=== PATIENT | male | born 1940 | race Caucasian/White ===

== ENCOUNTER → 2016-06-11 | Outpatient (CLI) | payer BC ==
[~2016-06-11] MED LIST: ATOR-22 PO; CHOL1000 PO; CLOP1TAB15 PO; GLC500 PO; LISI-725 PO; METO50TA16 PO; NTRGSL/4 UT; PRED1SUS OPR
--- NOTE | 2016-06-11 09:17 | DIAGNOSTIC IMAGING REPORT ---
CHEST 2 VIEWS ROUTINE CLINICAL HISTORY: J18.1 Right middle lobe [id number] pneumonia COMPARISON STUDY: 04/30/2016 FINDINGS: Chronic changes present described. Lungs are now considered clear. No acute infiltrate. Mid lobe findings have resolved. IMPRESSION: Chest now shows no acute inflammatory process. Stable mild chronic emphysematous change. Electronically signed by: Cruzito Phillips M.D. 06/11/2016 9:15 AM Dictated Date/Time: 06/11/2016 9:14 AM
== END | disposition home or self-care (01) ==
LOC: C.RADBC 08:54
PROVIDERS: ATTEND Internal Medicine Geriatric Medicine
DX: J18.1 Lobar pneumonia, unspecified organism (principal)

== ENCOUNTER → 2016-07-16 | Day surgery (SDC) | payer BC ==
[2016-07-14 10:51] VITALS: Ht 170.2 cm; Wt 63.6 kg
[~2016-07-16] VITALS: Ht 170.2 cm; Wt 63.6 kg
[~2016-07-16] MED LIST changes: +500ML BSS 0.3ML EPI 1:1000PF IRRIG ONE; +ACETAMINOPHEN 325 MG TAB PO PRN; +AMVISC PLUS 0.8ML SYRINGE INT OCU ONE; +ATROPINE SULFATE 0.1 MG/ML 5ML SYR IV PRN; +AcetaZOLAMIDE 250 MG TAB ONE; +AcetaZOLAMIDE 250 MG TAB PO SCH; +BETAXOLOL HCL 0.25% OP SUSP PER DROP CHARGE OPR SCH; +BRIMONIDINE TART 0.2% OP SOLN PER DROP CHARGE ONE; +BSS FLUSH ONE; +ENDOCOAT 0.85ML SYRINGE INT OCU ONE; +EpHEDrine SULFATE INJ 50 MG/ML AMP IV PRN; +EpINEphrine INJ 1MG/ML AMP 1 MG/ML AMP ONE; +LACTATED RINGER'S 1000ML 500 ML IV SCH; +LIDOCAINE 4% OP SOLN DROP CHARGE ONE; +LIDOCAINE 4% OP SOLN DROP CHARGE OPR SCH; +LIDOCAINE HCL 1% MPF 2 ML VIAL ONE; +MIDAZOLAM HCL 1 MG/ML 2ML VIAL ONE; +MIX: 4ML BSS 1ML EPI 1:1000 PF INSTIL ONE; +MOXIFLOXACIN OPH SOLN PER DROP CHARGE ONE; +OCUCOAT 1 ML SOLN IO ONE; +ONDANSETRON INJ 2 MG/ML 2 ML VIAL IV PRN; +POVIDONE-IODINE OP SOLN 30 ML BTL ONE; +PROPARACAINE 0.5% OP SOLN PER DROP CHARGE OPR SCH; +TOBRAMYCIN/DEXAMETHASONE OPH OINT PER APPLN CHARGE ONE
--- NOTE | 2016-07-16 07:47 | History & Physical Bridge - SC ---
H&P Re-Evaluation Bridge Note: I have examined the patient, reviewed the History & Physical and in the interval since the performance of the History & Physical I have noted the following changes of clinical significance: No changes noted
[2016-07-16] MEDS: PHENYLEPHRINE HCL 2.5% OP SOLN PER DROP CHARGE OPR SCH ×2 (08:32→08:37)
[2016-07-16] MEDS: TROPICAMIDE 1% OP SOLN PER DROP CHARGE OPR SCH ×2 (08:33→08:38)
[2016-07-16] MEDS: CYCLOPENTOLATE HCL 1% OP SOLN PER DROP CHARGE OPR SCH ×2 (08:34→08:39)
[2016-07-16] MEDS: MOXIFLOXACIN OPH SOLN PER DROP CHARGE OPR SCH ×2 (08:35→08:45)
--- NOTE | 2016-07-16 09:26 | Discharge Instructions-SurgCtr ---
Discharge Instructions Date of Service Jul 16, 2016. Visit Reason for Visit: Cataract Right Eye Discharge Discharge Diagnosis / Problem: lens implant right eye Discharge Goals Goal(s): Improve function Medications Stopped Medications Name(s): Metformin stopped Thursday Activity Recommendations Activity Limitations: resume your previous activity Lifting Limitations: no more than 10 pounds Exercise/Sports Limitations: gradually increase as tolerated May Resume Sexual Activity: when tolerated Shower/Bathe: tomorrow Driving or Machine Use: resume 1 day after discharge Anesthesia . Post Anesthesia Instructions: If you have had General Anesthesia or IV Sedation: * Do not drive today. * Resume driving when surgeon permits. * Do not make important decisions or sign legal documents today. * Call surgeon for: 1. Temperature elevations greater than 101 degrees F. 2. Uncontrollable pain. 3. Excessive bleeding. 4. Persistent nausea and vomiting. 5. Medication intolerance (nausea, vomiting or rash). * For nausea and vomiting use only clear liquids such as: tea, soda, bouillon until nausea subsides, then gradually increase diet as tolerated. * If you have any concerns or questions, call your surgeon's office. If physician is unavailable and it is an emergency, call 911 or go to the nearest emergency room. . Instructions / Follow-Up Instructions / Follow-Up ACTIVITY RECOMMENDATIONS: * Light activities. * Mild irritation and blurred vision are common for the first few days. * You may walk outside, read, watch television. * Redness around the white part of the eye is common. MEDICATIONS: Resume previous medications unless instructed otherwise by your surgeon. * Take white Diamox (Acetazolamide) tablet at 1 pm today. Start all eye drops at 1 pm today: * Eye drops (today and tomorrow): Prednisone - one drop in operative eye every 3 hours while awake Ofloxacin - one drop in operative eye every 3 hours while awake SPECIAL CARE INSTRUCTIONS: * Tape plastic shield over eye to sleep at night. Call your doctor at with any concerns or problems. FOLLOW UP VISIT: Follow-up with Dr Bolden at [place] office as scheduled. Diet Recommendations Home Diet: no limitations Procedures Procedures Performed: cataract extraction with lens implant Pending Studies Studies pending at discharge: no Medical Emergencies . Who to Call and When: Medical Emergencies: If at any time you feel your situation is an emergency, please call 911 immediately. . Non-Emergent Contact Non-Emergency issues call your: Engineering Mechanic Call Non-Emergent contact if: your pain is not controlled [phone] . . "Provider Documentation" section prepared by Les Bolden.
--- NOTE | 2016-07-16 09:28 | [facility] Operative Report ---
Operative Report Date of Service Jul 16, 2016. Operative Report 1. PREOPERATIVE DIAGNOSIS: Senile nuclear cataract, right eye. 2. POSTOPERATIVE DIAGNOSIS: Senile nuclear cataract, right eye. 3. PROCEDURE: Phacoemulsification of right cataract with posterior chamber lens implant, type [employer]ch [employer] Lomb, model MX60, power +23.0 diopters. ANESTHESIA: Local standby. SURGEON: Dr. Bolden. COMPLICATIONS: None. OPERATING TIME: 10 minutes. 4. OPERATION AND FINDINGS: DESCRIPTION OF PROCEDURE: The right pupil was dilated. The anesthetic was administered using a topical technique. The right eye was prepped and draped. A speculum was placed. A clear corneal incision was formed. The chamber was filled with Amvisc Plus and Endocoat. Epinephrine solution was used. A paracentesis was placed. A capsulorrhexis was performed. The nucleus was hydrodissected. The lens was removed with phacoemulsification. Time was 2.32 seconds. The aspiration unit was used to remove the cortex. The capsule was filled with Amvisc Plus. The lens implant was folded and placed into the capsule. The incision was hydrated. The Amvisc was aspirated. The wound was secure. The chamber was deep. The pupil was round. Brimonidine, TobraDex ointment and Vigamox solution were placed. The speculum was removed. The patient was returned to the Recovery Room in stable condition. I attest to the content of the Intraoperative Record and any orders documented therein. Any exceptions are noted below. The scribe's documentation has been prepared in my presence, under my direction and personally reviewed by me in its entirety. I confirm that the note above accurately reflects all work, treatment, procedures, and medical decision making performed by me. I personally scribed for Les Bolden M.D. ([email or web address]) on 07/16/16 at 09:28. Electronically submitted by Nicole Diaz (ISAEL).
[2016-07-16 09:31] VITALS: BP 130/77; PULSE 69; TEMP 36.6; O2SAT 99
--- NOTE | 2016-07-16 09:58 | Anesthesia Progress Nt - [facility] ---
Anesthesia Post Op Note Date & Time Jul 16, 2016 at 09:58 Vital Signs Pain Intensity: 0 Vital Signs Past 12 Hours Date Time Temp Pulse Resp B/P Pulse Ox O2 Delivery O2 Flow Rate FiO2 07/16/16 09:31 36.6 69 16 130/77 99 Room Air 07/16/16 08:26 36.5 55 16 144/77 98 Room Air Notes Mental Status: alert / awake / arousable, participated in evaluation Pt Amnestic to Procedure: Yes Nausea / Vomiting: adequately controlled Pain: adequately controlled Airway Patency, RR, SpO2: stable & adequate BP & HR: stable & adequate Hydration State: stable & adequate Anesthetic Complications: no major complications apparent
== END | disposition home or self-care (01) ==
LOC: X.SURG 07:21
PROVIDERS: ATTEND Specialist
DX: H25.11 Age-related nuclear cataract, right eye (principal); I10 Essential (primary) hypertension; E11.9 Type 2 diabetes mellitus without complications

== ENCOUNTER → 2016-07-30 | Day surgery (SDC) | payer BC ==
[2016-07-25 13:35] VITALS: Ht 170.2 cm; Wt 63.6 kg
[~2016-07-30] VITALS: Ht 170.2 cm; Wt 63.6 kg
[~2016-07-30] MED LIST changes: -AcetaZOLAMIDE 250 MG TAB ONE; +BETAXOLOL HCL 0.25% OP SUSP PER DROP CHARGE OPL SCH; -BETAXOLOL HCL 0.25% OP SUSP PER DROP CHARGE OPR SCH; +FENTANYL CITRATE INJ 50 MCG/1 ML 2 ML VIAL ONE; +LIDOCAINE 4% OP SOLN DROP CHARGE OPL SCH; -LIDOCAINE 4% OP SOLN DROP CHARGE OPR SCH; -ONDANSETRON INJ 2 MG/ML 2 ML VIAL IV PRN; +PROPARACAINE 0.5% OP SOLN PER DROP CHARGE OPL SCH; -PROPARACAINE 0.5% OP SOLN PER DROP CHARGE OPR SCH
[2016-07-30] MEDS: PHENYLEPHRINE HCL 2.5% OP SOLN PER DROP CHARGE OPL SCH ×2 (06:33→06:38)
[2016-07-30] MEDS: TROPICAMIDE 1% OP SOLN PER DROP CHARGE OPL SCH ×2 (06:34→06:39)
[2016-07-30] MEDS: CYCLOPENTOLATE HCL 1% OP SOLN PER DROP CHARGE OPL SCH ×2 (06:35→06:40)
[2016-07-30] MEDS: MOXIFLOXACIN OPH SOLN PER DROP CHARGE OPL SCH ×2 (06:36→06:41)
--- NOTE | 2016-07-30 07:35 | Discharge Instructions-SurgCtr ---
Discharge Instructions Date of Service Jul 30, 2016. Visit Reason for Visit: Cataract Left Eye Discharge Discharge Diagnosis / Problem: lens implant left eye Discharge Goals Goal(s): Improve function Medications Stopped Medications Name(s): Metformin-last dose 07/28/16 Activity Recommendations Activity Limitations: resume your previous activity Lifting Limitations: no more than 10 pounds Exercise/Sports Limitations: gradually increase as tolerated May Resume Sexual Activity: when tolerated Shower/Bathe: tomorrow Driving or Machine Use: resume 1 day after discharge Anesthesia . Post Anesthesia Instructions: If you have had General Anesthesia or IV Sedation: * Do not drive today. * Resume driving when surgeon permits. * Do not make important decisions or sign legal documents today. * Call surgeon for: 1. Temperature elevations greater than 101 degrees F. 2. Uncontrollable pain. 3. Excessive bleeding. 4. Persistent nausea and vomiting. 5. Medication intolerance (nausea, vomiting or rash). * For nausea and vomiting use only clear liquids such as: tea, soda, bouillon until nausea subsides, then gradually increase diet as tolerated. * If you have any concerns or questions, call your surgeon's office. If physician is unavailable and it is an emergency, call 911 or go to the nearest emergency room. . Instructions / Follow-Up Instructions / Follow-Up ACTIVITY RECOMMENDATIONS: * Light activities. * Mild irritation and blurred vision are common for the first few days. * You may walk outside, read, watch television. * Redness around the white part of the eye is common. MEDICATIONS: Resume previous medications unless instructed otherwise by your surgeon. * Take white Diamox (Acetazolamide) tablet at 1 pm today. Start all eye drops at 1 pm today: * Eye drops (today and tomorrow): Prednisone - one drop in operative eye every 3 hours while awake Ofloxacin - one drop in operative eye every 3 hours while awake SPECIAL CARE INSTRUCTIONS: * Tape plastic shield over eye to sleep at night. Call your doctor at with any concerns or problems. FOLLOW UP VISIT: Follow-up with Dr Bolden at [place] office as scheduled. Diet Recommendations Home Diet: no limitations Procedures Procedures Performed: cataract extraction with lens implant Pending Studies Studies pending at discharge: no Medical Emergencies . Who to Call and When: Medical Emergencies: If at any time you feel your situation is an emergency, please call 911 immediately. . Non-Emergent Contact Non-Emergency issues call your: Genetic Technologist Call Non-Emergent contact if: your pain is not controlled [phone] . . "Provider Documentation" section prepared by Les Bolden.
--- NOTE | 2016-07-30 07:37 | [facility] Operative Report ---
Operative Report Date of Service Jul 30, 2016. Operative Report 1. PREOPERATIVE DIAGNOSIS: Senile nuclear cataract, left eye. 2. POSTOPERATIVE DIAGNOSIS: Senile nuclear cataract, left eye. 3. PROCEDURE: Phacoemulsification of left cataract with posterior chamber lens implant, type Bausch [employer] Lomb, model MX60, power +24.0 diopters. ANESTHESIA: Local standby. SURGEON: Dr. Bolden. COMPLICATIONS: None. OPERATING TIME: 10 minutes. 4. OPERATION AND FINDINGS: DESCRIPTION OF PROCEDURE: The left pupil was dilated. The anesthetic was administered using a topical technique. The left eye was prepped and draped. A speculum was placed. A clear corneal incision was formed. The chamber was filled with Amvisc Plus and Endocoat. Epinephrine solution was used. A paracentesis was placed. A capsulorrhexis was performed. The nucleus was hydrodissected. The lens was removed with phacoemulsification. Time was 2.40 seconds. The aspiration unit was used to remove the cortex. The capsule was filled with Amvisc Plus. The lens implant was folded and placed into the capsule. The incision was hydrated. The Amvisc was aspirated. The wound was secure. The chamber was deep. The pupil was round. Brimonidine, TobraDex ointment and Vigamox solution were placed. The speculum was removed. The patient was returned to the Recovery Room in stable condition. I attest to the content of the Intraoperative Record and any orders documented therein. Any exceptions are noted below. The scribe's documentation has been prepared in my presence, under my direction and personally reviewed by me in its entirety. I confirm that the note above accurately reflects all work, treatment, procedures, and medical decision making performed by me. I personally scribed for Les Bolden M.D. ([email or web address]) on 07/30/16 at 07:37. Electronically submitted by Nicole Diaz ([facility]).
[2016-07-30 07:41] VITALS: TEMP 36.1
--- NOTE | 2016-07-30 08:11 | Anesthesia Progress Nt - [facility] ---
Anesthesia Post Op Note Date & Time Jul 30, 2016 at 08:11 Vital Signs Pain Intensity: 0 Vital Signs Past 12 Hours Date Time Temp Pulse Resp B/P Pulse Ox O2 Delivery O2 Flow Rate FiO2 07/30/16 07:41 36.1 55 12 112/51 98 Room Air 07/30/16 06:29 36.5 65 18 145/55 98 Room Air Notes Mental Status: alert / awake / arousable, participated in evaluation Pt Amnestic to Procedure: Yes Nausea / Vomiting: adequately controlled Pain: adequately controlled Airway Patency, RR, SpO2: stable & adequate BP & HR: stable & adequate Hydration State: stable & adequate Anesthetic Complications: no major complications apparent
[2016-07-30 08:17] VITALS: BP 115/70; PULSE 53; O2SAT 95
== END | disposition home or self-care (01) ==
LOC: X.SURG 06:07
PROVIDERS: ATTEND Specialist
DX: H25.12 Age-related nuclear cataract, left eye (principal); I10 Essential (primary) hypertension

== ENCOUNTER → 2016-10-02 | Outpatient (CLI) | payer BC ==
[~2016-10-02] MED LIST changes: -500ML BSS 0.3ML EPI 1:1000PF IRRIG ONE; -ACETAMINOPHEN 325 MG TAB PO PRN; -AMVISC PLUS 0.8ML SYRINGE INT OCU ONE; -ATROPINE SULFATE 0.1 MG/ML 5ML SYR IV PRN; -AcetaZOLAMIDE 250 MG TAB PO SCH; -BETAXOLOL HCL 0.25% OP SUSP PER DROP CHARGE OPL SCH; -BRIMONIDINE TART 0.2% OP SOLN PER DROP CHARGE ONE; -BSS FLUSH ONE; -ENDOCOAT 0.85ML SYRINGE INT OCU ONE; -EpHEDrine SULFATE INJ 50 MG/ML AMP IV PRN; -EpINEphrine INJ 1MG/ML AMP 1 MG/ML AMP ONE; -FENTANYL CITRATE INJ 50 MCG/1 ML 2 ML VIAL ONE; -LACTATED RINGER'S 1000ML 500 ML IV SCH; -LIDOCAINE 4% OP SOLN DROP CHARGE ONE; -LIDOCAINE 4% OP SOLN DROP CHARGE OPL SCH; -LIDOCAINE HCL 1% MPF 2 ML VIAL ONE; -MIDAZOLAM HCL 1 MG/ML 2ML VIAL ONE; -MIX: 4ML BSS 1ML EPI 1:1000 PF INSTIL ONE; -MOXIFLOXACIN OPH SOLN PER DROP CHARGE ONE; -OCUCOAT 1 ML SOLN IO ONE; -POVIDONE-IODINE OP SOLN 30 ML BTL ONE; -PROPARACAINE 0.5% OP SOLN PER DROP CHARGE OPL SCH; -TOBRAMYCIN/DEXAMETHASONE OPH OINT PER APPLN CHARGE ONE
[2016-10-02 09:48] LABS: ESTIMATED AVERAGE GLUCOSE 140 mg/dl; HA1C FLAG Normal (Normal)
[2016-10-02 09:49] LABS: BLOOD UREA NITROGEN 15 mg/dl (7-18); GLUCOSE 112 mg/dl (70-99)
[2016-10-02 09:50] LABS: BUN/CREATININE RATIO 12.2 (10-20); CARBON DIOXIDE 30 mmol/L (21-32); CHLORIDE 103 mmol/L (98-107); CHOLESTEROL 102 mg/dl (0-200); POTASSIUM 4.3 mmol/L (3.5-5.1); SODIUM 140 mmol/L (136-145); TRIGLYCERIDES 82 mg/dl (0-150); VERY LOW DENSITY LIPOPROT CALC 16 mg/dl
[2016-10-02 09:54] LABS: CALCIUM 8.9 mg/dl (8.5-10.1)
[2016-10-02 09:56] LABS: CHOLESTEROL/HDL RATIO 2.9; HDL CHOLESTEROL 35 mg/dl; LDL CHOLESTEROL CALCULATED 51 mg/dl
[2016-10-02 09:58] LABS: URINE PROTIEN/CREAT RATIO 0.1 (0-0.2); URINE TOTAL PROTEIN 15.6 mg/dl (0-11.9)
== END | disposition home or self-care (01) ==
LOC: C.LAB 06:53
PROVIDERS: ATTEND Internal Medicine Geriatric Medicine
DX: I25.10 Atherosclerotic heart disease of native coronary artery without angina pectoris (principal); E11.9 Type 2 diabetes mellitus without complications; E78.5 Hyperlipidemia, unspecified; I10 Essential (primary) hypertension

== ENCOUNTER → 2017-12-14 | Outpatient (CLI) | payer BC | END | disposition home or self-care (01) | LOC: C.LAB 13:33 | PROVIDERS: ATTEND Nurse Practitioner Adult Health | DX: I25.10 Atherosclerotic heart disease of native coronary artery without angina pectoris (principal); E11.9 Type 2 diabetes mellitus without complications; I10 Essential (primary) hypertension; I25.2 Old myocardial infarction; T14.90XA Injury, unspecified, initial encounter; W57.XXXA Bitten or stung by nonvenomous insect and other nonvenomous arthropods, initial encounter ==

== ENCOUNTER 2020-03-20 12:03 | Inpatient (IN) ==
[2020-03-20] MEDS ORDERED: OPTIRAY 320 125ml IV ONE (12:36)
--- NOTE | 2020-03-20 12:36 | CT Scan Report ---
CT OF THE HEAD WITHOUT CONTRAST CLINICAL HISTORY: Stroke evaluation. COMPARISON STUDY: No previous studies for comparison. TECHNIQUE: Helical axial images of the head were obtained without IV contrast. Automated exposure con trol was utilized for the study. A dose lowering technique was utilized adhering to the principles o f ALARA. FINDINGS: No acute intracranial hemorrhage, midline shift or mass effect is present. The ventricular system is unremarkable. The basal cisterns are patent. No extra-axial collections are present. There are no findings to suggest acute dural sinus thrombosis or acute territorial infarct. No significant calvarial abnormalities are present. Visualized portions of the sinuses and mastoid air cells are aroldo ar. IMPRESSION: No acute intracranial findings. ACT 112: Negative or not required by law. Electronically signed by: Lucas Vu M.D. 03/20/2020 12:35 PM
[2020-03-20] MEDS ORDERED: MAGNESIUM SULFATE / D5W 1 GM/100 ML BAG IV STA (12:40)
[2020-03-20] MEDS ORDERED: SODIUM CHLORIDE 0.9% 1000ML 500 ML IV ONE (12:40)
[2020-03-20] MEDS ORDERED: MAGNESIUM SULFATE 1GM / D5W BAG IV ONE (12:41)
--- NOTE | 2020-03-20 12:50 | CT Scan Report ---
CT ANGIOGRAM OF THE BRAIN; CT ANGIOGRAM OF THE NECK CLINICAL HISTORY: Strokelike symptoms. COMPARISON STUDY: Unenhanced CT of the brain performed concurrently on 03/20/2020. TECHNIQUE: Following the IV administration of 120 of Optiray 320, CT angiogram of the head and neck w as performed from the aortic arch to the vertex. Images are reviewed in the axial, sagittal, and nadine nal planes. 3-D MIPS images are created and assessed. IV contrast was administered without complicati on. All measurements were calculated based on NASCET criteria. A dose lowering technique was utilize d adhering to the principles of ALARA. CT DOSE: 1349.98 mGy.cm FINDINGS: Brain parenchyma: There is age-related involutional change noting mild subcortical and periventricula r microangiopathic disease. There is no hemorrhage, mass effect, or evidence of acute territorial isc hemia by CT criteria. There is no evidence of enhancing mass lesion on the angiogram phase images. Th e ventricles, sulci, and cisterns are prominent secondary to resolution will change. Jackson-white matte r differentiation is preserved. No extra-axial fluid collection is seen. Thoracic aorta: There is atherosclerotic calcification of the thoracic aorta. Visualized portions of the thoracic aorta are normal in caliber. The aortic arch demonstrates standard 3-vessel anatomy. Right carotid arterial system: The right common carotid artery is widely patent. Advanced atheroscler otic plaque in the carotid bulb causes less than 50% luminal narrowing at the origin of the right int ernal carotid artery. Brain are the right internal carotid artery is clear. There is moderate stenosi s at the origin of the right external carotid artery. Left carotid arterial system: The left common carotid artery is widely patent. Atherosclerotic plaque in the carotid bulb causes less than 50% stenosis at the origin of the left internal carotid artery. The remainder of the left internal carotid artery is patent. There is high-grade stenosis with near complete occlusion at the origin of the left external carotid artery. Vertebral arteries: There is mild to moderate stenosis at the origin of the right vertebral artery. T he vertebral arteries are otherwise patent and codominant. Subclavian arteries: Widely patent bilaterally. Intracranial vasculature: There is atherosclerotic calcification of the cavernous carotid and vertebr al arteries. The [place] is developmentally complete. The internal carotid arteries are clay[place] nt at the skull base, as are the anterior and middle cerebral arteries bilaterally. The vertebrobasil ar system and posterior cerebral arteries are widely patent. The vertebral arteries are codominant. T here is a 2 mm aneurysm identified along the inferior aspect of the supraclinoid left internal caroti d artery, best seen on axial image #125. No additional aneurysm is seen. There is no high-grade steno sis or focal vessel cut off seen throughout the intracranial circulation. Jugular veins: Patent bilaterally. Dural sinuses: Patent. Lung apices: Emphysematous change and biapical scarring is noted. Soft tissues: The visualized pharyngeal soft tissues are normal in appearance noting angiographic pha se technique. The oropharyngeal airway appears widely patent. The salivary and thyroid glands are nor mal in appearance. No cervical lymphadenopathy is seen. Skeletal structures: The skeletal structures are osteopenic. The calvarium appears intact. The cervic al spine is maintained noting multilevel spondylosis. No lytic or blastic lesion is seen. Orbits: The bony orbits are intact. Orbital contents are normal as visualized noting bilateral ocular lens implants. Sinuses and mastoids: The paranasal sinuses are clear. The mastoid air cells are well pneumatized. IMPRESSION: 1. There is no hemorrhage, mass effect, or evidence of acute territorial ischemia by CT criteria noti ng angiographic phase technique. 2. 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 3. Otherwise unremarkable CT angiogram of the brain. 4. There is mild to moderate stenosis at the origin of the right vertebral artery. 5. Atherosclerotic plaque causes less than 50% luminal narrowing at the origin of both internal carot id arteries. The internal carotid arteries are otherwise widely patent. 6. There is moderate stenosis at the origin of the right external carotid artery and high-grade steno sis at the origin of the left external carotid artery. 7. Emphysema. 8. Additional findings as above. ACT 112: Negative or not required by law. Electronically signed by: Joshua Rajan M.D. 03/20/2020 12:49 PM
[2020-03-20 12:57] LABS: Basophils # (auto) 0.01 K/uL (0-0.2); Basophils % (auto) 0.1 %; Eosinophils # (auto) 0.13 K/uL (0-0.5); Eosinophils % (auto) 1.5 %; Hematocrit (blood only) 35.6 % (42-52); Hemoglobin 12.3 g/dL (14.0-18.0); Immature Granulocytes # (auto) 0.01 K/uL (0.00-0.02); Immature Granulocytes % (auto) 0.1 %; Lymphocytes # (auto) 2.06 K/uL (1.2-3.4); Lymphocytes % (auto) 24.4 %; Mean Corpuscular Hemoglobin 31.5 pg (25-34); Mean Corpuscular Hgb Conc 34.6 g/dL (32-36); Mean Corpuscular Volume 91.3 fL (80-100); Mean Platelet Volume 10.9 fL (7.4-10.4); Monocytes # (auto) 0.56 K/uL (0.11-0.59); Monocytes % (auto) 6.6 %; Neutrophils # (auto) 5.66 K/uL (1.4-6.5); Neutrophils % (auto) 67.3 %; Platelet Count 229 K/uL (130-400); RDW Coefficient of Variation 12.8 % (11.5-14.5); RDW Standard Deviation 42.2 fL (36.4-46.3); White Blood Count 8.43 K/uL (4.8-10.8)
[2020-03-20] MEDS ORDERED: TPA for Stroke IV STA (12:59)
[2020-03-20 13:04] LABS: Partial Thromboplastin Ratio 0.9; Partial Thromboplastin Time 25.2 Seconds (21.0-31.0)
[2020-03-20] MEDS ORDERED: ALTEPLASE BOLUS IV ONE (13:09)
[2020-03-20] MEDS ORDERED: RECOMBINANT IV ONE (13:10)
[2020-03-20] MEDS ORDERED: ALTEPLASE IV ONE (13:10)
[2020-03-20] MEDS ORDERED: PRIMARY PLUMSET, PE LINED TUBING, 113 IN, NON-DEHP (2260-0500) IV ONE (13:10)
[2020-03-20 13:12] LABS: Albumin Level 3.2 gm/dl (3.4-5.0); BUN Creatinine Ratio 13.3 (10-20); Calcium 8.3 mg/dl (8.5-10.1); Creatinine Clr Calc Pharmacy 41.5 ml/min; Est GFR (African American) 68.3; Est GFR (Non-African American) 58.9; Potassium 4.3 mmol/L (3.5-5.1)
[2020-03-20 13:27] LABS: Albumin Globulin Ratio 1.2 (0.9-2); Bilirubin,Total 0.4 mg/dl (0.2-1); Globulin 2.7 gm/dl (2.5-4.0); Total Protein 5.9 gm/dl (6.4-8.2); Troponin I 0.203 ng/ml (0-0.045)
--- NOTE | 2020-03-20 14:40 | Emergency Department Note ---
History of Present Illness General Chief complaint: Confusion Stated complaint: CONFUSION SENT BY DR HERNANDEZ OFC Time Seen by Provider: 03/20/20 12:22 Source: patient, family (), RN notes reviewed and old records reviewed Mode of arrival: ambulatory Limitations: altered mental status History of Present Illness Provider complaint: word aphasia, loss of visual field on right Onset (ago): hour(s) 3 Location: head Maximum Pain Intensity: 0 Relieved By: + none Exacerbated By: + none Associated symptoms: + confusion; no chest pain, no diaphoresis, no fever/chills, no headaches, no nausea/vomiting and no shortness of breath Treatments prior to arrival: none This is an 80-year-old male who presents emergency department complaining of sudden onset of word aphasia. The patient and his report that the patient was speaking with the recreation adviser today when he became acutely confused out of nowhere. The patient's became concerned that the patient sugar was low. She gave him a muffin and checked his sugar. The patient then felt better however the symptoms returned approximately half hour later. At this point the patient's called the primary care physician's office who told the patient to come to the emergency department. Upon arrival to the emergency department patient is complaining of a visual loss on the right side and I did addition is having difficulty finding the correct words. Home Medications Medication Instructions Recorded Confirmed Type nitroglycerin 0.4 mg sublingual 0.4 mg SL Q5M PRN #30 tab 12/02/18 03/20/20 Rx tablet cholecalciferol (vitamin D3) 25 1,000 units PO DAILY 03/08/19 03/20/20 History mcg (1,000 unit) capsule atorvastatin 20 mg tablet 20 mg PO DAILY #90 tab 05/05/19 03/20/20 Rx clopidogrel 75 mg tablet 75 mg PO DAILY #90 tab 05/05/19 03/20/20 Rx lisinopril 20 mg tablet 20 mg PO BID #180 tab 10/11/19 03/20/20 Rx Allergies Allergy/AdvReac Type Severity Reaction Status Date / Time aspirin Allergy Severe ANAPHYLAXIS Verified 03/20/20 13:44 Fish Containing Products Allergy Severe HIVES, Unverified 03/20/20 13:44 ANAPHYLAXIS naproxen Allergy Anaphylaxis Verified 03/20/20 13:44 Past Med/Surg History Medical History Actinic keratosis Arteriosclerotic coronary artery disease CAD (coronary artery disease) Carotid bruit Chronic kidney disease Claudication, intermittent Diabetic retinopathy, nonproliferative Dyslipidemia Hearing loss Hypertension Idiopathic polyneuropathy Osteoarthritis Past myocardial infarction Peripheral vascular disease Proteinuria Rhinitis Type 2 diabetes mellitus Vitamin D deficiency Surgical History Hx of CABG S/P CABG x 4 Family History Other No significant family history Denies family history of Ovarian cancer Prostate cancer Myocardial infarction Breast cancer Colorectal cancer Social History Smoking Status: Former smoker Tobacco Type: Cigarettes Second Hand Exposure: No; Hx Alcohol Use: Yes Alcohol type: beer Alcohol Intake Frequency: 4 or More x per/Week Hx Substance Use: No Preferred Language: Serbian Communication Ability: Effective Visual Impairment: Limited Hearing Ability: Normal Computer System Specialist Required: No Beliefs That Will Affect Care: None marital status: Current Living Situation: Spouse current occupational status: retired How many Children do You have: 2 Other Information That Helps Us Care for You: No Feels Safe at Home: Yes Safety Concerns: Feels Safe At This Time Childhood Exposure to Second-Hand Smoke: Yes caffeine: Yes Dental Care, Regularly: Yes Physical Activity Frequency: 3-4 Times per Week Seatbelt Use: always Sunscreen Use: No Assistive Devices: Glasses Review of Systems A total of 10 systems reviewed and were otherwise negative Physical Exam Vital Signs Vital Signs - 24 hr 03/20/20 12:13 03/20/20 12:35 03/20/20 12:40 Temperature 36.8 C Temperature Source Oral Pulse Rate 63 78 Pulse Rate [Apical] Pulse Rate from SpO2 Sensor Pulse Rhythm [Apical] Respiratory Rate 18 21 Respiratory Effort / Characteristics Non-Labored Respiratory Depth Normal Respiratory Pattern Blood Pressure 173/118 H 139/93 Blood Pressure [Left Arm] Blood Pressure Mean 136 106 Blood Pressure Mean [Left Arm] Blood Pressure Position [Left Arm] Pulse Oximetry 94 98 98 Oxygen Delivery Method Room Air Sepsis Recent Fever Within 48 Hours No Sepsis New/Unexplained Change in Mental Status No Sepsis Action Taken by Nursing No Action Required 03/20/20 12:45 03/20/20 13:00 03/20/20 13:14 Temperature 36.8 C Temperature Source Oral Pulse Rate 63 58 L Pulse Rate [Apical] 66 Pulse Rate from SpO2 Sensor 64 Pulse Rhythm [Apical] Respiratory Rate 15 20 18 Respiratory Effort / Characteristics Non-Labored Spontaneous Respiratory Depth Normal Respiratory Pattern Blood Pressure 158/71 H 152/90 H Blood Pressure [Left Arm] 157/52 H Blood Pressure Mean 116 125 Blood Pressure Mean [Left Arm] 87 Blood Pressure Position [Left Arm] Pulse Oximetry 98 97 98 Oxygen Delivery Method Room Air Room Air Sepsis Recent Fever Within 48 Hours Sepsis New/Unexplained Change in Mental Status Sepsis Action Taken by Nursing 03/20/20 13:29 03/20/20 13:44 03/20/20 13:59 Temperature 36.9 C 36.8 C 36.9 C Temperature Source Oral Oral Pulse Rate Pulse Rate [Apical] 61 66 80 Pulse Rate from SpO2 Sensor Pulse Rhythm [Apical] Respiratory Rate 17 15 18 Respiratory Effort / Characteristics Non-Labored Non-Labored Non-Labored Respiratory Depth Normal Normal Normal Respiratory Pattern Regular Blood Pressure Blood Pressure [Left Arm] 149/58 H 153/67 H 152/57 H Blood Pressure Mean Blood Pressure Mean [Left Arm] 88 95 88 Blood Pressure Position [Left Arm] Lying Lying Lying Pulse Oximetry 100 100 100 Oxygen Delivery Method Room Air Room Air Room Air Sepsis Recent Fever Within 48 Hours Sepsis New/Unexplained Change in Mental Status Sepsis Action Taken by Nursing 03/20/20 14:14 03/20/20 14:29 03/20/20 14:44 Temperature 36.5 C 36.8 C 36.9 C Temperature Source Oral Oral Oral Pulse Rate Pulse Rate [Apical] 75 58 L 68 Pulse Rate from SpO2 Sensor Pulse Rhythm [Apical] Regular Respiratory Rate 17 19 16 Respiratory Effort / Characteristics Non-Labored Spontaneous Non-Labored Non-Labored Respiratory Depth Normal Normal Normal Respiratory Pattern Regular Regular Blood Pressure Blood Pressure [Left Arm] 127/83 161/66 H 158/72 H Blood Pressure Mean Blood Pressure Mean [Left Arm] 97 97 100 Blood Pressure Position [Left Arm] Sitting Lying Sitting Pulse Oximetry 98 100 99 Oxygen Delivery Method Room Air Room Air Room Air Sepsis Recent Fever Within 48 Hours Sepsis New/Unexplained Change in Mental Status Sepsis Action Taken by Nursing 03/20/20 14:59 03/20/20 15:12 Temperature 36.8 C Temperature Source Oral Pulse Rate Pulse Rate [Apical] 60 71 Pulse Rate from SpO2 Sensor Pulse Rhythm [Apical] Respiratory Rate 14 20 Respiratory Effort / Characteristics Non-Labored Respiratory Depth Normal Respiratory Pattern Blood Pressure Blood Pressure [Left Arm] 161/69 H 168/86 H Blood Pressure Mean Blood Pressure Mean [Left Arm] 99 113 Blood Pressure Position [Left Arm] Lying Lying Pulse Oximetry 99 99 Oxygen Delivery Method Room Air Sepsis Recent Fever Within 48 Hours Sepsis New/Unexplained Change in Mental Status Sepsis Action Taken by Nursing VITAL SIGNS - Vital signs and nursing notes were reviewed. GENERAL - 80-year-old male appearing stated age who is in no acute distress. Communicates well with provider and answers questions appropriately. SKIN - Without rashes. HEAD - NC/AT. EYES - PERRL with EOMI bilaterally. Sclera anicteric. Palpebral conjunctiva pink and moist with no injection noted. EARS - No deformities of external structures noted on gross examination bilaterally. No pain elicited with palpation of the tragus bilaterally. External auditory canals without discharge or otorrhea. Tympanic membranes pearly jackson without retraction or bulging. No fluid or purulent material visualized behind the TM. Handle of malleus, umbo, cone of light, pars tensa/flaccid all easily visualized. NOSE - Midline and without cyanosis. No epistaxis or purulent drainage noted. Septum midline without deviation or septal hematoma noted. MOUTH/OROPHARYNX - Without perioral cyanosis. Buccal mucosa pink and moist and without leukoplakia. Tongue midline with equal elevation of palate bilaterally. No tonsillar hypertrophy, erythema, or exudates noted. dentition noted. NECK - Neck with FROM. Supple to palpation. lymphadenopathy noted. No nuchal rigidity. LUNGS - Chest wall symmetric without accessory muscle use, intercostals retractions, or central cyanosis. Normal vesicular breath sounds CTA B/L. No wheezes, rales, or rhonchi appreciated. CARDIAC - RRR with S1/S2. No murmur, rubs, or gallops appreciated. ABDOMEN - Abdominal contour without pulsations or visible masses. BS normoactive all four quadrants. No tenderness, palpable masses, hepatosplenomegaly, or ascites noted. EXTREMITIES - No clubbing or peripheral cyanosis. No pretibial edema present. +3/5 radial, posterior tibial, and dorsalis pedis pulses palpated throughout. +5/5 strength noted in UE/LE bilaterally. NEUROLOGIC - Cranial nerves II through XII grossly intact. Sensory intact to light touch throughout. Patellar reflexes +2/4. PSYCH - A&Ox3 and cooperates fully with examiner. Pt is very pleasant and interacts well with examiner. Course Administered Medications Discontinued Medications Alteplase, Recombinant (Tpa For Stroke) 1 ea IV NOW STA; Protocol Stop: 03/20/20 13:00 Last Admin: 03/20/20 14:09 Dose: Not Given Documented by: [id number] Magnesium Sulfate/Dextrose (Magnesium Sulfate / D5w) 1 gm in 100 mls @ 100 mls/hr IV NOW STA Stop: 03/20/20 13:39 Last Infusion: 03/20/20 13:40 Dose: 0 mls/hr Documented by: [id number] Admin: 03/20/20 12:40 Dose: 100 mls/hr Documented by: [id number] Sodium Chloride (Nss 1000ml) 500 mls @ 999 mls/hr IV .Q31M ONE Stop: 03/20/20 13:10 Last Infusion: 03/20/20 13:11 Dose: 0 mls/hr Documented by: [id number] Admin: 03/20/20 12:40 Dose: 999 mls/hr Documented by: [id number] Alteplase, Recombinant 6 mg/ (Syringe) 6 mls @ 6 mls/min IV ONCE ONE Stop: 03/20/20 13:10 Last Admin: 03/20/20 13:12 Dose: 6 mls/min Documented by: [id number] Cosigned by: [id number] Alteplase, Recombinant 53 mg/ (EMPTY BAG) 53 mls @ 53 mls/hr IV ONCE ONE Stop: 03/20/20 13:11 Last Infusion: 03/20/20 17:57 Dose: 0 mls/hr Documented by: [id number] Cosigned by: [id number] Admin: 03/20/20 13:14 Dose: 53 mls/hr Documented by: [id number] Cosigned by: [id number] Ioversol (Optiray 320 125ml) 120 ml IV ONCE ONE Stop: 03/20/20 12:37 Last Admin: 03/20/20 12:37 Dose: 120 ml Documented by: [id number] Magnesium Sulfate/Dextrose (Magnesium Sulfate 1gm / D5w Bag) Confirm Administered Dose 1 gm IV .STK-MED ONE Stop: 03/20/20 12:42 Last Admin: 03/20/20 13:03 Dose: Not Given Documented by: [id number] Critical Care Time I have personally spent greater than 90 minutes of critical care time in the direct management of this patient. This includes bedside care, interpretation of diagnostic studies, and testing, discussion with consultants, patient, and family members, and other required patient management activities. This 90 minutes is in excess of all separately billable procedures. Medical Decision Making Differential Diagnosis Infection, dehydration, metabolic abnormality, hypo/hyperglycemia, electrolyte disturbance, anemia, hypoxia, cardiac sources, intracerebral event, toxicologic, neurologic, as well as other pathologies. Medical Records Attestation: I reviewed the patient's medical records. Home Medications Current Medication List: was personally reviewed by me Laboratory Data Attestation: I reviewed the patient's lab results. Result diagrams: 03/20/20 12:34 03/20/20 12:34 Lab Results 03/20/20 03/20/20 03/20/20 Range/Units 12:17 12:34 12:34 WBC 8.43 (4.8-10.8) K/uL RBC 3.90 L (4.7-6.1) M/uL Hgb 12.3 L (14.0-18.0) g/dL Hct 35.6 L (42-52) % MCV 91.3 (80-100) fL MCH 31.5 (25-34) pg MCHC 34.6 (32-36) g/dL RDW Std Deviation 42.2 (36.4-46.3) fL RDW Coeff of Marcell 12.8 (11.5-14.5) % Plt Count 229 (130-400) K/uL MPV 10.9 H (7.4-10.4) fL Immature Gran % (Auto) 0.1 % Neut % (Auto) 67.3 % Lymph % (Auto) 24.4 % Jennings % (Auto) 6.6 % Eos % (Auto) 1.5 % Baso % (Auto) 0.1 % Neut # (Auto) 5.66 (1.4-6.5) K/uL Lymph # (Auto) 2.06 (1.2-3.4) K/uL Jennings # (Auto) 0.56 (0.11-0.59) K/uL Eos # (Auto) 0.13 (0-0.5) K/uL Baso # (Auto) 0.01 (0-0.2) K/uL Immature Gran # (Auto) 0.01 (0.00-0.02) K/uL PT (9.0-12.0) Seconds INR (0.9-1.1) APTT (21.0-31.0) Seconds PTT Ratio Sodium (136-145) mmol/L Potassium (3.5-5.1) mmol/L Chloride (98-107) mmol/L Carbon Dioxide (21-32) mmol/L Anion Gap (3-11) BUN (7-18) mg/dl Creatinine (0.6-1.4) mg/dl Est Cr Clr Drug Dosing ml/min Est GFR ( Amer) Est GFR (Non-Af Amer) BUN/Creatinine Ratio (10-20) Glucose (70-99) mg/dl POC Glucose 178 H (70-99) mg/dl Calcium (8.5-10.1) mg/dl Magnesium (1.8-2.4) mg/dl Total Bilirubin (0.2-1) mg/dl AST (15-37) U/L ALT (12-78) U/L Alkaline Phosphatase (45-117) U/L Troponin I (0-0.045) ng/ml Total Protein (6.4-8.2) gm/dl Albumin (3.4-5.0) gm/dl Globulin (2.5-4.0) gm/dl Albumin/Globulin Ratio (0.9-2) COVID-19 Eval Order SARS-CoV-2, RNA, NAAT (NEGATIVE) Blood Type AB Positive Antibody Screen NEGATIVE 03/20/20 03/20/20 03/20/20 Range/Units 12:34 12:34 12:36 WBC (4.8-10.8) K/uL RBC (4.7-6.1) M/uL Hgb (14.0-18.0) g/dL Hct (42-52) % MCV (80-100) fL MCH (25-34) pg MCHC (32-36) g/dL RDW Std Deviation (36.4-46.3) fL RDW Coeff of Marcell (11.5-14.5) % Plt Count (130-400) K/uL MPV (7.4-10.4) fL Immature Gran % (Auto) % Neut % (Auto) % Lymph % (Auto) % Jennings % (Auto) % Eos % (Auto) % Baso % (Auto) % Neut # (Auto) (1.4-6.5) K/uL Lymph # (Auto) (1.2-3.4) K/uL Jennings # (Auto) (0.11-0.59) K/uL Eos # (Auto) (0-0.5) K/uL Baso # (Auto) (0-0.2) K/uL Immature Gran # (Auto) (0.00-0.02) K/uL PT 11.0 (9.0-12.0) Seconds INR 1.0 (0.9-1.1) APTT 25.2 (21.0-31.0) Seconds PTT Ratio 0.9 Sodium 132 L (136-145) mmol/L Potassium 4.3 (3.5-5.1) mmol/L Chloride 99 (98-107) mmol/L Carbon Dioxide 29 (21-32) mmol/L Anion Gap 4.0 (3-11) BUN 15 (7-18) mg/dl Creatinine 1.15 (0.6-1.4) mg/dl Est Cr Clr Drug Dosing 41.5 ml/min Est GFR ( Amer) 68.3 Est GFR (Non-Af Amer) 58.9 BUN/Creatinine Ratio 13.3 (10-20) Glucose 137 H (70-99) mg/dl POC Glucose 144 H (70-99) mg/dl Calcium 8.3 L (8.5-10.1) mg/dl Magnesium 2.0 (1.8-2.4) mg/dl Total Bilirubin 0.4 (0.2-1) mg/dl AST 16 (15-37) U/L ALT 25 (12-78) U/L Alkaline Phosphatase 53 (45-117) U/L Troponin I 0.203 H* (0-0.045) ng/ml Total Protein 5.9 L (6.4-8.2) gm/dl Albumin 3.2 L (3.4-5.0) gm/dl Globulin 2.7 (2.5-4.0) gm/dl Albumin/Globulin Ratio 1.2 (0.9-2) COVID-19 Eval Order SARS-CoV-2, RNA, NAAT (NEGATIVE) Blood Type Antibody Screen 03/20/20 03/20/20 Range/Units 15:12 15:12 WBC (4.8-10.8) K/uL RBC (4.7-6.1) M/uL Hgb (14.0-18.0) g/dL Hct (42-52) % MCV (80-100) fL MCH (25-34) pg MCHC (32-36) g/dL RDW Std Deviation (36.4-46.3) fL RDW Coeff of Marcell (11.5-14.5) % Plt Count (130-400) K/uL MPV (7.4-10.4) fL Immature Gran % (Auto) % Neut % (Auto) % Lymph % (Auto) % Jennings % (Auto) % Eos % (Auto) % Baso % (Auto) % Neut # (Auto) (1.4-6.5) K/uL Lymph # (Auto) (1.2-3.4) K/uL Jennings # (Auto) (0.11-0.59) K/uL Eos # (Auto) (0-0.5) K/uL Baso # (Auto) (0-0.2) K/uL Immature Gran # (Auto) (0.00-0.02) K/uL PT (9.0-12.0) Seconds INR (0.9-1.1) APTT (21.0-31.0) Seconds PTT Ratio Sodium (136-145) mmol/L Potassium (3.5-5.1) mmol/L Chloride (98-107) mmol/L Carbon Dioxide (21-32) mmol/L Anion Gap (3-11) BUN (7-18) mg/dl Creatinine (0.6-1.4) mg/dl Est Cr Clr Drug Dosing ml/min Est GFR ( Amer) Est GFR (Non-Af Amer) BUN/Creatinine Ratio (10-20) Glucose (70-99) mg/dl POC Glucose (70-99) mg/dl Calcium (8.5-10.1) mg/dl Magnesium (1.8-2.4) mg/dl Total Bilirubin (0.2-1) mg/dl AST (15-37) U/L ALT (12-78) U/L Alkaline Phosphatase (45-117) U/L Troponin I (0-0.045) ng/ml Total Protein (6.4-8.2) gm/dl Albumin (3.4-5.0) gm/dl Globulin (2.5-4.0) gm/dl Albumin/Globulin Ratio (0.9-2) COVID-19 Eval [facility], RNA, NAAT NEGATIVE (NEGATIVE) Blood Type Antibody Screen Imaging Data Radiologist's Impression: [place], [place] [phone] CT Scan Report Patient: CHICO WAY JR Admit Date: 03/20/20 MR#: [id number] Address1: [address] [place] [address] Acct ID:[id number] Address2: Date: 1940 [facility] Zip: [place] [address] Age: 80 Location: ED Sex: M Room/Bed: Att Phy: Diagnosis: CONFUSION SENT BY DR HERNANDEZ OFC Brittani Phy: Jadon Hernandez MD Service Date: 03/20/20 Fam Phy: Interpreting Phy: Joshua Rajan MD Admit Phy: Ordering Phy: Rakesh Burch MD cc: ~ CT ANGIOGRAM OF THE BRAIN; CT ANGIOGRAM OF THE NECK CLINICAL HISTORY: Strokelike symptoms. COMPARISON STUDY: Unenhanced CT of the brain performed concurrently on 03/20/2020. TECHNIQUE: Following the IV administration of 120 of Optiray 320, CT angiogram of the head and neck was performed from the aortic arch to the vertex. Images are reviewed in the axial, sagittal, and coronal planes. 3-D MIPS images are created and assessed. IV contrast was administered without complication. All measurements were calculated based on NASCET criteria. A dose lowering technique was utilized adhering to the principles of ALARA. CT DOSE: 1349.98 mGy.cm FINDINGS: Brain parenchyma: There is age-related involutional change noting mild subcortical and periventricular microangiopathic disease. There is no hemorrhage, mass effect, or evidence of acute territorial ischemia by CT criteria. There is no evidence of enhancing mass lesion on the angiogram phase images. The ventricles, sulci, and cisterns are prominent secondary to resolution will change. Jackson-white matter differentiation is preserved. No extra-axial fluid collection is seen. Thoracic aorta: There is atherosclerotic calcification of the thoracic aorta. Visualized portions of the thoracic aorta are normal in caliber. The aortic arch demonstrates standard 3-vessel anatomy. Right carotid arterial system: The right common carotid artery is widely patent. Advanced atherosclerotic plaque in the carotid bulb causes less than 50% luminal narrowing at the origin of the right internal carotid artery. Brain are the right internal carotid artery is clear. There is moderate stenosis at the origin of the right external carotid artery. Left carotid arterial system: The left common carotid artery is widely patent. Atherosclerotic plaque in the carotid bulb causes less than 50% stenosis at the origin of the left internal carotid artery. The remainder of the left internal carotid artery is patent. There is high-grade stenosis with near complete occlusion at the origin of the left external carotid artery. Vertebral arteries: There is mild to moderate stenosis at the origin of the rig ht vertebral artery. The vertebral arteries are otherwise patent and codominant. Subclavian arteries: Widely patent bilaterally. Intracranial vasculature: There is atherosclerotic calcification of the cavernous carotid and vertebral arteries. The northway of Ramirez is developmentally complete. The internal carotid arteries are patent at the skull base, as are the anterior and middle cerebral arteries bilaterally. The vertebrobasilar system and posterior cerebral arteries are widely patent. The v ertebral arteries are codominant. There is a 2 mm aneurysm identified along the inferior aspect of the supraclinoid left internal carotid artery, best seen on axial image #125. No additional aneurysm is seen. There is no high-grade stenosis or focal vessel cut off seen throughout the intracranial circulation. Jugular veins: Patent bilaterally. Dural sinuses: Patent. Lung apices: Emphysematous change and biapical scarring is noted. Soft tissues: The visualized pharyngeal soft tissues are normal in appearance noting angiographic phase technique. The oropharyngeal airway appears widely patent. The salivary and thyroid glands are normal in appearance. No cervical lymphadenopathy is seen. Skeletal structures: The skeletal structures are osteopenic. The calvarium appears intact. The cervical spine is maintained noting multilevel spondylosis. No lytic or blastic lesion is seen. Orbits: The bony orbits are intact. Orbital contents are normal as visualized noting bilateral ocular lens implants. Sinuses and mastoids: The paranasal sinuses are clear. The mastoid air cells are well pneumatized. IMPRESSION: 1. There is no hemorrhage, mass effect, or evidence of acute territorial ische robi by CT criteria noting angiographic phase technique. 2. 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 3. Otherwise unremarkable CT angiogram of the brain. 4. There is mild to moderate stenosis at the origin of the right vertebral artery. 5. Atherosclerotic plaque causes less than 50% luminal narrowing at the origin of both internal carotid arteries. The internal carotid arteries are otherwise widely patent. 6. There is moderate stenosis at the origin of the right external carotid artery and high-grade stenosis at the origin of the left external carotid artery. 7. Emphysema. 8. Additional findings as above. ACT 112: Negative or not required by law. Electronically signed by: Joshua Rajan M.D. 03/20/2020 12:49 PM Dictated: 03/20/20 1237 Transcribed: 03/20/20 1237 [place], [place] [phone] CT Scan Report Patient: CHICO WAY JR Admit Date: 03/20/20 MR#: [id number] Address1: [address] [place] [address] Acct ID:[id number] Address2: Date: 1940 [facility] Zip: [place] [address] Age: 80 Location: ED Sex: M Room/Bed: Att Phy: Diagnosis: CONFUSION SENT BY DR HERNANDEZ [facility] Phy: Jadon Hernandez MD Service Date: 03/20/20 [facility] Phy: Interpreting Phy: Lucas Vu MD Admit Phy: Ordering Phy: Rakesh Burch MD cc: ~ CT OF THE HEAD WITHOUT CONTRAST CLINICAL HISTORY: Stroke evaluation. COMPARISON STUDY: No previous studies for comparison. TECHNIQUE: Helical axial images of the head were obtained without IV contrast. Automated exposure control was utilized for the study. A dose lowering technique was utilized adhering to the principles of ALARA. FINDINGS: No acute intracranial hemorrhage, midline shift or mass effect is present. The ventricular system is unremarkable. The basal cisterns are patent. No extra-axial collections are present. There are no findings to suggest acute dural sinus thrombosis or acute territorial infarct. No significant calvarial abnormalities are present. Visualized portions of the sinuses and mastoid air cells are clear. IMPRESSION: No acute intracranial findings. ACT 112: Negative or not required by law. Electronically signed by: Lucas Vu M.D. 03/20/2020 12:35 PM Dictated: 03/20/20 1232 Transcribed: 03/20/20 1232 [facility], [place] [phone] XRay Report Patient: CHICO WAY JR Admit Date: 03/20/20 MR#: [id number] Address1: [address] [facility] Acct ID:[id number] Address2: Date: 1940 [facility] Zip: [place] [address] Age: 80 Location: ED Sex: M Room/Bed: Att Phy: Diagnosis: CONFUSION SENT BY DR HERNANDEZ [facility] Brittani Phy: Jadon Hernandez MD Service Date: 03/20/20 Fam Phy: Interpreting Phy: Joshua Rajan MD Admit Phy: Ordering Phy: Rakesh Burch MD cc: ~ SINGLE VIEW CHEST CLINICAL HISTORY: Change in mental status. FINDINGS: An AP, portable, upright chest radiograph is compared to study dated 08/06/2009 and correlated with chest CT dated 09/12/2009. The patient is status post midline sternotomy. The heart is top normal for projection noting atherosclerotic calcification of the thoracic aorta. The pulmonary vasculature is noncongested. Emphysema and chronic interstitial thickening is similar to previous. There is bibasilar scarring/atelectasis. No airspace consolidation or large pleural effusion is identified. No pneumothorax is seen. The skeletal structures are osteopenic. The bony thorax is grossly intact. IMPRESSION: Emphysematous change with no acute cardiopulmonary abnormality. ACT 112: Negative or not required by law. Electronically signed by: Joshua Rajan M.D. 03/20/2020 2:56 PM Dictated: 03/20/20 1452 Transcribed: 03/20/20 1452 [facility], [phone] Magnetic Resonance Report Patient: CHICO WAY JRAdmit Date: 03/20/20MR#: [id number]: [address] [facility] STAcct ID:[id number]: Date: 1940[facility] Zip: [place] [address]Wdi: 80Location: EDSex: MRoom/Bed:Att Phy:Diagnosis: CONFUSION SENT BY DR HERNANDEZ OFCPri Phy: Jadon Hernandez MDService Date: 03/20/20Fam Phy:Interpreting Phy: Daniel ComerAdmit Phy: Ordering Phy: Rakesh Burch MD cc: ~ MR brain wo con HISTORY: 80 years-old Male Pt Rt sided visual loss, word aphasia acute confusion with strokelike symptoms COMPARISON: CT head, CTA head and neck studies of same day TECHNIQUE: Multiplanar multisequence MRI of the brain was obtained without the use of IV contrast. FINDINGS: Cabin Crew localizer images demonstrate no gross extracranial abnormality. There is no restricted diffusion to suggest acute or subacute infarct. Study is mildly motion degraded. Midline structures including the corpus callosum, brainstem, optic chiasm, pituitary and pineal glands appear unremarkable on the sagittal T1 series. There is no cerebellar tonsillar herniation. Degenerative changes are noted involving the imaged cervical spine. No pathologic blooming artifact on the T2 star series. There is no acute intracranial hemorrhage, midline shift, abnormal extra-axial collection, hydrocephalus or intracranial mass. Age-related involutional changes with mild ex vacuo 2 cardiomegaly. Mild patchy T2/FLAIR hyperintensities about the white matter are suggestive of chronic microvascular ischemic disease. The cerebral venous sinuses and major arterial flow voids at the level of the skull base appear patent. Mastoid air cells are clear. Mild mucosal thickening of the e thmoid air cells. Prior bilateral lens replacement. The skull and soft tissues are unremarkable. IMPRESSION: Motion degraded exam without acute intracranial abnormality identified. Specifically, there is no evidence of acute or subacute infarct. ACT 112: Negative or not required by law. The above report was generated using voice recognition software. It may contain grammatical, syntax or spelling errors. Electronically signed by: Mando Comer M.D. 03/20/2020 4:09 PM Dictated: 03/20/201603Transcribed: 03/20/201603 ECG Data Attestation: I personally reviewed and interpreted this ECG as follows: Indication: + altered mental status Rate (beats per minute): 69 Rhythm: + sinus with SA ECG Intervals/blocks: + Normal QT-c (409) ECG [place]: + Normal ECG ST segments: + ST depression (Inferior) and + ST elevation (Anterior) Comparison ECG Date: from (04/14/2016) Change: no significant change MDM Narrative Patient was seen and evaluated as above in room B1. Review was performed of nursing notes and vital signs. I did review pertinent previous visits and patient history. After obtaining a thorough history and physical examination the above work up was performed. This is an 80-year-old male who presents emergency department complaining of nany den onset of word aphasia as well as loss of right visual field. Based on these findings a stroke alert was immediately initiated. The patient was sent for CAT scan as well as CTA of the head neck. CTA is concerning for multiple areas of stenosis. The patient was started on magnesium here in the emergency department. He was independently evaluated by the neurologist on-call who recommended TPA. I also recommended TPA for the patient. Patient is going to go for an MRI. Patient was discussed with the hospital service who did agree to meet the patient. An order was placed for continuous cardiac monitoring. The monitor shows a rate of 59 with Normal SInus rhythm. The patient was evaluated during the global COVID-19 pandemic, and that diagnosis was suspected/considered upon their initial presentation. Their evaluation, treatment and testing was consistent with current guidelines for patients who present with complaints or symptoms that may be related to COVID- 19. Impression & Plan Altered mental status, Vision loss, CVA (cerebral vascular accident), Anemia, Elevated troponin Discharge Plan Visit Data Chief Complaint: Confusion Stated Complaint: CONFUSION SENT BY DR NAVEED AMES ED Provider: Rakesh Burch Discharge Problem: Altered mental status, Vision loss, CVA (cerebral vascular accident), Anemia, Elevated troponin Patient Disposition: Admitted As Inpatient Discharge Instructions Interventions: ED Discharge Assessment Last Done: 03/20/20 16:23 Discharge Problem: Altered mental status Qualifiers: Altered mental status type: unspecified Qualified Code(s): R41.82 - Altered mental status, unspecified CVA (cerebral vascular accident) Qualifiers: CVA mechanism: unspecified Qualified Code(s): I63.9 - Cerebral infarction, unspecified Anemia Qualifiers: Anemia type: unspecified type Qualified Code(s): D64.9 - Anemia, unspecified
--- NOTE | 2020-03-20 14:44 | History & Physical Report ---
Date of Service March 20, 2020 Assessment & Plan (1) Stroke-like symptoms: Presented with expressive aphasia and right-sided vision loss, now status post TPA administration in the ER with significantly improved deficits Risk factors for stroke include DM 2, HTN, carotid artery stenosis, history of smoking He is on Plavix at the time of the stroke Given history of vascular disease, most likely thrombotic in nature -Admit to ICU for post TPA care for close monitoring of blood pressure and for signs of bleeding -Monitor on telemetry for atrial fibrillation -Repeat head CT 24 hours from the time of TPA administration which would be at 1300 on 03/21 -Check MRI of the brain for stroke -Check echocardiogram without bubble study -Check lipid panel and hemoglobin A1c in the morning -Keep blood pressure controlled less than 180/105 -Appreciate enrollment services dean and neurology consultations -Hold home Plavix for now. He has a history of anaphylaxis with aspirin and therefore cannot take aspirin or Aggrenox. Question if Brilinta would be an option for him? Increase atorvastatin to 40 mg daily -Okay to continue home lisinopril 20 mg p.o. twice daily -Will need PT/OT/speech therapy consultations -Neurochecks per protocol (2) Vision loss: As above (3) Elevated troponin: With mild elevation in troponin at 0.2. He denies any chest pain. ECG with some more prominent T wave inversions which could be secondary to acute stroke -Trend serial troponin once able to have blood draws in the setting of recent TPA -Check echocardiogram (4) Hyponatremia: Sodium mildly low on admission at 132 Received 1 L of normal saline in the ER Follow BMP tomorrow (5) Carotid stenosis: As above, less than 50% bilaterally -Will need antiplatelet once okay in the setting of TPA Increase statin as above to 40 mg Follow as an outpatient (6) CAD (coronary artery disease): Status post CABG in 2004 at [facility], follows with PCP locally rather than cardiology Has not had any issues since that time -Holding home Plavix for now as above Increasing statin He is no longer on metoprolol as an outpatient Checking echocardiogram Trending troponin as above (7) Chronic kidney disease: CKD stage III Renal function is at baseline -Avoid nephrotoxins -renally dose meds when appropriate -follow BMP (8) Type 2 diabetes mellitus: Most recent hemoglobin A1c 6.8% Glycemic control as per ICU protocol Holding home Metformin (9) Dyslipidemia: Increase statin as above for acute stroke Follow lipid panel in the morning (10) Hypertension: Blood pressure control as noted above Continue home lisinopril and use IV hydralazine as needed in the setting of TPA use (11) Osteoarthritis: Avoid NSAIDs in the setting of CKD stage III (12) Anemia: Chronic and stable from previous Follows with PCP Follow CBC here (13) Idiopathic polyneuropathy: Noted in chart (14) DVT prophylaxis: SCDs only in setting of recent TPA use Disposition-admit to ICU Full code History of Present Illness Chief Complaint: Vision loss, speech difficulty Primary Care Provider: Jadon Hernandez MD This patient is an 80-year-old male with a history of DM 2, CAD status post CABG, carotid artery stenosis, HTN, dyslipidemia, CKD stage III, and hearing loss, who presents to the ER with stuttering right visual field deficit and "word salad." That started at 930 this morning. He reports feeling he knew what he wanted to say but the words would not come out the way he wanted him to. He felt a little bit "off" with his vision but could not figure out what was wrong with it until he came to the ER and was unable to see out of the right side peripherally. A telestroke neurology consult was performed with Caterina and he was given TPA in the ER after stroke alert was called. 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 He was also found to have a mildly elevated troponin. His EKG was abnormal but unchanged from previous. By the time I saw him, his speech was almost completely back to baseline as per the patient and his . He still had some right-sided visual deficits. He denied any headaches or lightheadedness, no weakness or numbness or tingling, denied any chest pain or shortness of breath or heart palpitations. He denied nausea or vomiting, no abdominal pains or constipation or diarrhea. No recent fevers or chills, no Covid symptoms or exposures. He will be admitted to the hospital for stroke symptoms now status post TPA administration. Allergies Allergy/AdvReac Type Severity Reaction Status Date / Time aspirin Allergy Severe ANAPHYLAXIS Verified 03/20/20 13:44 Fish Containing Products Allergy Severe HIVES, Unverified 03/20/20 13:44 ANAPHYLAXIS naproxen Allergy Anaphylaxis Verified 03/20/20 13:44 Home Medications Medication Instructions Recorded Confirmed Type nitroglycerin 0.4 mg sublingual 0.4 mg SL Q5M PRN #30 tab 12/02/18 03/20/20 Rx tablet cholecalciferol (vitamin D3) 25 1,000 units PO DAILY 03/08/19 03/20/20 History mcg (1,000 unit) capsule atorvastatin 20 mg tablet 20 mg PO DAILY #90 tab 05/05/19 03/20/20 Rx clopidogrel 75 mg tablet 75 mg PO DAILY #90 tab 05/05/19 03/20/20 Rx lisinopril 20 mg tablet 20 mg PO BID #180 tab 10/11/19 03/20/20 Rx Past Med/Surg History Medical History Actinic keratosis Arteriosclerotic coronary artery disease CAD (coronary artery disease) Carotid bruit Chronic kidney disease Claudication, intermittent Diabetic retinopathy, nonproliferative Dyslipidemia Hearing loss Hypertension Idiopathic polyneuropathy Osteoarthritis Past myocardial infarction Peripheral vascular disease Proteinuria Rhinitis Type 2 diabetes mellitus Vitamin D deficiency Surgical History Hx of CABG S/P CABG x 4 Family History Other No significant family history Denies family history of Ovarian cancer Prostate cancer Myocardial infarction Breast cancer Colorectal cancer Social History Smoking Status: Former smoker Tobacco Type: Cigarettes Second Hand Exposure: No; Hx Alcohol Use: Yes Alcohol type: beer Alcohol Intake Frequency: 4 or More x per/Week Hx Substance Use: No Preferred Language: Bulgarian Communication Ability: Effective Visual Impairment: Limited Hearing Ability: Normal Event Decorator Required: No Beliefs That Will Affect Care: None marital status: Current Living Situation: Spouse current occupational status: retired How many Children do You have: 2 Other Information That Helps Us Care for You: No Feels Safe at Home: Yes Safety Concerns: Feels Safe At This Time Childhood Exposure to Second-Hand Smoke: Yes caffeine: Yes Dental Care, Regularly: Yes Physical Activity Frequency: 3-4 Times per Week Seatbelt Use: always Sunscreen Use: No Assistive Devices: Glasses Review of Systems Review of Systems: All systems reviewed & are unremarkable except as noted in HPI & below Physical Exam Constitutional: WD/WN, vitals as above Eyes: PERRL, conjunctivae normal, anicteric sclerae EOM intact bilaterally; + abnormal visual field confrontation (Decreased right-sided vision with temporal hemianopsia) and no nystagmus ENMT: external ear and nose normal, oropharynx normal Neck: trachea midline, no thyromegaly Respiratory: normal respiratory effort, lungs clear to auscultation Cardiovascular: RRR, no murmur, no edema Chest (Breasts): Chest: + abnormal inspection of chest (Midline sternotomy scar) Gastrointestinal (Abdomen): normal bowel sounds, soft, nontender, no hepatosplenomegaly Musculoskeletal: Extremities: extremities normal to inspection; no cyanosis and no clubbing Skin: no rashes, warm and dry Neurologic: CN's II-XI intact bilaterally (Except right-sided temporal hemianopsia as above), moves all extremities and awake; no focal motor deficits (5 out of 5 strength throughout) and not confused Speech / Cognition: normal cognition Motor/Sensory: no tremor, no pronator drift and no sensory deficit Psychiatric: A+Ox3, euthymic affect Lymphatic: no lymphedema Results & Data Results & Data ([facility]) Vital Signs (Past 12 Hours) Vital Signs Temp Pulse Pulse Resp BP BP Pulse Ox 03/20/20 14:14 36.5 C 75 17 127/83 98 03/20/20 13:59 36.9 C 80 18 152/57 H 100 03/20/20 13:44 36.8 C 66 15 153/67 H 100 03/20/20 13:29 36.9 C 61 17 149/58 H 100 03/20/20 13:14 36.8 C 66 18 157/52 H 98 03/20/20 13:00 58 L 20 152/90 H 97 03/20/20 12:45 63 15 158/71 H 98 03/20/20 12:40 98 03/20/20 12:35 78 21 139/93 98 11/17/20 12:13 36.8 C 63 18 173/118 H 94 Laboratory Results 03/20/20 03/20/20 03/20/20 Range/Units 18:15 15:12 15:12 WBC (4.8-10.8) K/uL RBC (4.7-6.1) M/uL Hgb (14.0-18.0) g/dL Hct (42-52) % MCV (80-100) fL MCH (25-34) pg MCHC (32-36) g/dL RDW Std Deviation (36.4-46.3) fL RDW Coeff of Marcell (11.5-14.5) % Plt Count (130-400) K/uL MPV (7.4-10.4) fL Immature Gran % (Auto) % Neut % (Auto) % Lymph % (Auto) % [place] % (Auto) % Eos % (Auto) % Baso % (Auto) % Neut # (Auto) (1.4-6.5) K/uL Lymph # (Auto) (1.2-3.4) K/uL [place] # (Auto) (0.11-0.59) K/uL Eos # (Auto) (0-0.5) K/uL Baso # (Auto) (0-0.2) K/uL Immature Gran # (Auto) (0.00-0.02) K/uL PT (9.0-12.0) Seconds INR (0.9-1.1) APTT (21.0-31.0) Seconds PTT Ratio Sodium (136-145) mmol/L Potassium (3.5-5.1) mmol/L Chloride (98-107) mmol/L Carbon Dioxide (21-32) mmol/L Anion Gap (3-11) BUN (7-18) mg/dl Creatinine (0.6-1.4) mg/dl Est Cr Clr Drug Dosing ml/min Est GFR ( Amer) Est GFR (Non-Af Amer) BUN/Creatinine Ratio (10-20) Glucose (70-99) mg/dl POC Glucose (70-99) mg/dl Calcium (8.5-10.1) mg/dl Magnesium (1.8-2.4) mg/dl Total Bilirubin (0.2-1) mg/dl AST (15-37) U/L ALT (12-78) U/L Alkaline Phosphatase (45-117) U/L Troponin I (0-0.045) ng/ml Total Protein (6.4-8.2) gm/dl Albumin (3.4-5.0) gm/dl Globulin (2.5-4.0) gm/dl Albumin/Globulin Ratio (0.9-2) Nasal Screen MRSA (PCR) Negative (Negative) COVID-19 Eval Order Covid19 IDNow atMMAC SARS-CoV-2, RNA, NAAT NEGATIVE (NEGATIVE) Blood Type Antibody Screen 03/20/20 03/20/20 03/20/20 Range/Units 12:36 12:34 12:34 WBC (4.8-10.8) K/uL RBC (4.7-6.1) M/uL Hgb (14.0-18.0) g/dL Hct (42-52) % MCV (80-100) fL MCH (25-34) pg MCHC (32-36) g/dL RDW Std Deviation (36.4-46.3) fL RDW Coeff of Marcell (11.5-14.5) % Plt Count (130-400) K/uL MPV (7.4-10.4) fL Immature Gran % (Auto) % Neut % (Auto) % Lymph % (Auto) % [place] % (Auto) % Eos % (Auto) % Baso % (Auto) % Neut # (Auto) (1.4-6.5) K/uL Lymph # (Auto) (1.2-3.4) K/uL [place] # (Auto) (0.11-0.59) K/uL Eos # (Auto) (0-0.5) K/uL Baso # (Auto) (0-0.2) K/uL Immature Gran # (Auto) (0.00-0.02) K/uL PT 11.0 (9.0-12.0) Seconds INR 1.0 (0.9-1.1) APTT 25.2 (21.0-31.0) Seconds PTT Ratio 0.9 Sodium 132 L (136-145) mmol/L Potassium 4.3 (3.5-5.1) mmol/L Chloride 99 (98-107) mmol/L Carbon Dioxide 29 (21-32) mmol/L Anion Gap 4.0 (3-11) BUN 15 (7-18) mg/dl Creatinine 1.15 (0.6-1.4) mg/dl Est Cr Clr Drug Dosing 41.5 ml/min Est GFR ( Amer) 68.3 Est GFR (Non-Af Amer) 58.9 BUN/Creatinine Ratio 13.3 (10-20) Glucose 137 H (70-99) mg/dl POC Glucose 144 H (70-99) mg/dl Calcium 8.3 L (8.5-10.1) mg/dl Magnesium 2.0 (1.8-2.4) mg/dl Total Bilirubin 0.4 (0.2-1) mg/dl AST 16 (15-37) U/L ALT 25 (12-78) U/L Alkaline Phosphatase 53 (45-117) U/L Troponin I 0.203 H* (0-0.045) ng/ml Total Protein 5.9 L (6.4-8.2) gm/dl Albumin 3.2 L (3.4-5.0) gm/dl Globulin 2.7 (2.5-4.0) gm/dl Albumin/Globulin Ratio 1.2 (0.9-2) Nasal Screen MRSA (PCR) (Negative) COVID-19 Eval Order SARS-CoV-2, RNA, NAAT (NEGATIVE) Blood Type Antibody Screen 03/20/20 03/20/20 03/20/20 Range/Units 12:34 12:34 12:17 WBC 8.43 (4.8-10.8) K/uL RBC 3.90 L (4.7-6.1) M/uL Hgb 12.3 L (14.0-18.0) g/dL Hct 35.6 L (42-52) % MCV 91.3 (80-100) fL MCH 31.5 (25-34) pg MCHC 34.6 (32-36) g/dL RDW Std Deviation 42.2 (36.4-46.3) fL RDW Coeff of Marcell 12.8 (11.5-14.5) % Plt Count 229 (130-400) K/uL MPV 10.9 H (7.4-10.4) fL Immature Gran % (Auto) 0.1 % Neut % (Auto) 67.3 % Lymph % (Auto) 24.4 % [place] % (Auto) 6.6 % Eos % (Auto) 1.5 % Baso % (Auto) 0.1 % Neut # (Auto) 5.66 (1.4-6.5) K/uL Lymph # (Auto) 2.06 (1.2-3.4) K/uL [place] # (Auto) 0.56 (0.11-0.59) K/uL Eos # (Auto) 0.13 (0-0.5) K/uL Baso # (Auto) 0.01 (0-0.2) K/uL Immature Gran # (Auto) 0.01 (0.00-0.02) K/uL PT (9.0-12.0) Seconds INR (0.9-1.1) APTT (21.0-31.0) Seconds PTT Ratio Sodium (136-145) mmol/L Potassium (3.5-5.1) mmol/L Chloride (98-107) mmol/L Carbon Dioxide (21-32) mmol/L Anion Gap (3-11) BUN (7-18) mg/dl Creatinine (0.6-1.4) mg/dl Est Cr Clr Drug Dosing ml/min Est GFR ( Amer) Est GFR (Non-Af Amer) BUN/Creatinine Ratio (10-20) Glucose (70-99) mg/dl POC Glucose 178 H (70-99) mg/dl Calcium (8.5-10.1) mg/dl Magnesium (1.8-2.4) mg/dl Total Bilirubin (0.2-1) mg/dl AST (15-37) U/L ALT (12-78) U/L Alkaline Phosphatase (45-117) U/L Troponin I (0-0.045) ng/ml Total Protein (6.4-8.2) gm/dl Albumin (3.4-5.0) gm/dl Globulin (2.5-4.0) gm/dl Albumin/Globulin Ratio (0.9-2) Nasal Screen MRSA (PCR) (Negative) COVID-19 Eval Order SARS-CoV-2, RNA, NAAT (NEGATIVE) Blood Type AB Positive Antibody Screen NEGATIVE The Diagnostic Findings CT angiogram head/neck: IMPRESSION: 1. There is no hemorrhage, mass effect, or evidence of acute territorial ischemia by CT criteria noting angiographic phase technique. 2. 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 3. Otherwise unremarkable CT angiogram of the brain. 4. There is mild to moderate stenosis at the origin of the right vertebral artery. 5. Atherosclerotic plaque causes less than 50% luminal narrowing at the origin of both internal carotid arteries. The internal carotid arteries are otherwise widely patent. 6. There is moderate stenosis at the origin of the right external carotid artery and high-grade stenosis at the origin of the left external carotid artery. 7. Emphysema. 8. Additional findings as above. CT OF THE HEAD WITHOUT CONTRAST CLINICAL HISTORY: Stroke evaluation. COMPARISON STUDY: No previous studies for comparison. TECHNIQUE: Helical axial images of the head were obtained without IV contrast. Automated exposure control was utilized for the study. A dose lowering technique was utilized adhering to the principles of ALARA. FINDINGS: No acute intracranial hemorrhage, midline shift or mass effect is present. The ventricular system is unremarkable. The basal cisterns are patent. No extra-axial collections are present. There are no findings to suggest acute dural sinus thrombosis or acute territorial infarct. No significant calvarial abnormalities are present. Visualized portions of the sinuses and mastoid air cells are clear. IMPRESSION: No acute intracranial findings. ECG Additional Comments: ECG on 03/20/2020 at 1237 with sinus rhythm with sinus arrhythmia, anteroseptal infarct is old, ST and T wave abnormality in lateral leads, T wave inversion more evident in anterior leads compared to previous Code Status & VTE Plan Code Status Full code VTE Prophylaxis Plan VTE Prophylaxis will be ordered: Yes PG Care Time/CCT Total # of Minutes Spent Total Time Spent with Patient: Total time spent is greater than 50% in coordination of care (as documented) at patient's floor/unit and/or counseling patient: Coding Level of Care Code 69156 Initial Inpt Care Lvl 3 Diagnoses Stroke-like symptoms R29.90 Vision loss H54.7 Elevated troponin R77.8 Hyponatremia E87.1 Carotid stenosis I65.29 CAD (coronary artery disease) I25.10 Chronic kidney disease N18.9 Type 2 diabetes mellitus E11.9 Dyslipidemia E78.5 Hypertension I10 Osteoarthritis M19.90 Anemia D64.9 Idiopathic polyneuropathy G60.9 DVT prophylaxis Z29.9
--- NOTE | 2020-03-20 14:58 | XRay Report ---
SINGLE VIEW CHEST CLINICAL HISTORY: Change in mental status. FINDINGS: An AP, portable, upright chest radiograph is compared to study dated 08/06/2009 and correlate d with chest CT dated 09/12/2009. The patient is status post midline sternotomy. The heart is top norm al for projection noting atherosclerotic calcification of the thoracic aorta. The pulmonary vasculatu re is noncongested. Emphysema and chronic interstitial thickening is similar to previous. There is bi basilar scarring/atelectasis. No airspace consolidation or large pleural effusion is identified. No p neumothorax is seen. The skeletal structures are osteopenic. The bony thorax is grossly intact. IMPRESSION: Emphysematous change with no acute cardiopulmonary abnormality. ACT 112: Negative or not required by law. Electronically signed by: Joshua Rajan M.D. 03/20/2020 2:56 PM
--- NOTE | 2020-03-20 16:10 | Magnetic Resonance Report ---
MR brain wo con HISTORY: 80 years-old Male Pt Rt sided visual loss, word aphasia acute confusion with strokelike sym ptoms COMPARISON: CT head, CTA head and neck studies of same day TECHNIQUE: Multiplanar multisequence MRI of the brain was obtained without the use of IV contrast. FINDINGS: Hogshead Hand localizer images demonstrate no gross extracranial abnormality. There is no restricted diffusio n to suggest acute or subacute infarct. Study is mildly motion degraded. Midline structures including the corpus callosum, brainstem, optic chiasm, pituitary and pineal glands appear unremarkable on the sagittal T1 series. There is no cerebellar tonsillar herniation. Degenerative changes are noted invo lving the imaged cervical spine. No pathologic blooming artifact on the T2 star series. There is no acute intracranial hemorrhage, mid line shift, abnormal extra-axial collection, hydrocephalus or intracranial mass. Age-related involuti onal changes with mild ex vacuo 2 cardiomegaly. Mild patchy T2/FLAIR hyperintensities about the white matter are suggestive of chronic microvascular ischemic disease. The cerebral venous sinuses and holley or arterial flow voids at the level of the skull base appear patent. Mastoid air cells are clear. Mil d mucosal thickening of the ethmoid air cells. Prior bilateral lens replacement. The skull and soft t issues are unremarkable. IMPRESSION: Motion degraded exam without acute intracranial abnormality identified. Specifically, the re is no evidence of acute or subacute infarct. ACT 112: Negative or not required by law. The above report was generated using voice recognition software. It may contain grammatical, syntax o r spelling errors. Electronically signed by: Mando Comer M.D. 03/20/2020 4:09 PM
[2020-03-20] MEDS ORDERED: ICU PROTOCOL FOR HYPERGLYCEMIA PRN (16:49)
[2020-03-20] MEDS ORDERED: PHARMACIST DISCHARGE MED REC CONSULT PRN (16:49)
--- NOTE | 2020-03-20 17:02 | Electrocardiogram Report ---
Test Reason : Blood Pressure : / mmHG Vent. Rate : 069 BPM Atrial Rate : 069 BPM P-R Int : 142 ms QRS Dur : 080 ms QT Int : 382 ms P-R-T Axes : 075 017 169 degrees QTc Int : 409 ms Sinus rhythm with marked sinus arrhythmia Anteroseptal infarct (cited on or before 05-FEB-2005) Abnormal ECG When compared with ECG of 14-APR-2016 07:28, T wave inversion more evident in Anterorlateral leads Confirmed by Les Espinoza ([id number]) on 03/20/2020 5:01:53 PM Referred By: ED Confirmed By:Les Espinoza
--- NOTE | 2020-03-20 17:16 | Critical Care Consultation ---
Date of Consultation March 20, 2020 Assessment & Plan (1) CVA (cerebral vascular accident): Reason Critically Ill: 80 yo M PMHx CAD s/p CABG, CKD III with baseline creatinine 1.2, DM2 on oral therapy, HLD, HTN presented with acute word salad and right visual field loss to ER, admitted to ICU for monitoring post-TPA. Neuro - CVA: - This AM at 930 with acute onset confusion - CT Head did not show any acute findings of bleed or stroke. - CTA Head/Neck showed mild-moderate stenosis at the origin of the right vertebral artery, <50% luminal narrowing at the origin of bilateral internal carotid arteries, moderate stenosis at the origin of the right external carotid artery, and high grade stenosis at the origin of the left external carotid artery. No acute findings of CVA or intracranial hemorrhage. - Telestroke consult with Dr. Davison from [facility]; decision made to proceed with TPA. - s/p TPA at 1PM. - MRI while motion degraded did not have any evidence of acute or subacute infarct. - Echo in AM. - CT Head at 1PM tomorrow for 24 hour post-TPA scan. - Hgb A1c, lipid panel AM. - Admitted to ICU for close hemodynamic monitoring and frequent neuro checks. - Neurology consulted and appreciate recommendations. - Goal BP <185/105 post-TPA. - Continue home Lisinopril 20 mg p.o. twice daily for BP control. Hydralazine 10mg IV q6h prn BP >180/105. - Consider addition of Aggrenox given CVA on Plavix (when 24 hours post-TPA). 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 Cardiac CAD: - History of with CABG x4 in 2004; on atorvastatin, Plavix, Lisinopril at home. - Continue above. - EKG without acute changes, still with anterior lead T wave inversion just somewhat more pronounced on todays EKG. No complaints of chest pain or angina equivalents. - Mildly elevated troponin to 0.203, no baseline from previous visits to compare. - Echo ordered, pending. - Repeat troponin at 8pm. - Consider addition of metoprolol given CAD. HTN: - Home lisinopril 20 mg p.o. twice daily for BP control. - Hydralazine 10mg IV q6h prn BP >180/105. HLD: - History of, on atorvastatin 20mg daily. - Lipid panel in AM. - Continue home statin. Respiratory - No acute respiratory concerns, no history of lung disease. - CXR shows emphysematous changes with no acute cardiopulmonary abnormalities. - Patient has a significant smoking history, 60 years of smoking 1/2 pack per day. GI - Swallow evaluation bedside. - Clear liquid diet, advance as tolerated. RENAL/LYTES - CKD: - Baseline creatinine 1.1-1.2 with estimated GFR 51-61 mL/min. - On admission with creatinine 1.15. - Repeat BMP, Mg, Phos in AM. - - No present concerns. - Judd for now for strict Is/Os. ENDO - - No history of thyroid disease, TSH 03/01 was 1.58. DM2: - History of, not on oral medications. - Hgb A1c in AM. - ICU hyperglycemia protocol. HEME Anemia: - On admission with Hgb 12.3, baseline ~14. - MCV normal. - Monitor with morning CBC, especially in the setting of receiving TPA. ID - No present infectious concerns. - COVID 19 negative. - Monitor fever curve. INTEGUMENTARY - No integumentary concerns. LINES/IV ACCESS - PIVs intact. - Judd. DVT PROPHYLAXIS - SCDs, holding medical ppx post-TPA. CODE STATUS - Full code. Thank you for allowing us to be part of this patient's care. Please refer to Dr. Rodriguez's documentation for any further recommendations. (2) Anemia: (3) Elevated troponin: (4) Vision loss: (5) CAD (coronary artery disease): (6) Chronic kidney disease: (7) Type 2 diabetes mellitus: (8) Hypertension: (9) Dyslipidemia: Supervising Physician Co-Signing Physician Notes Dr. Saldana was the resident-physician during care of patient. I separately evaluated patient for meyers portions of the history and the exam. I was present during the critical portion of medical decision making, and I discussed the case with the resident. I generally agree with the findings and plan except for any additions/exceptions noted. Patient seen and examined at bedside. No acute distress. Patient came to the ED with complaints of expressive aphasia/word salad. Patient had a CT head as well as CTA done in the ED which was negative for acute stroke. He got TPA. Patient also had an MRI of the brain which was negative for any acute stroke. At the time of examination patient has no focal deficit. His feels her vision is intact. Patient denies any chest pain, no shortness of breath, no headache, no nausea, no vomiting. Strength 5 out of 5 bilateral upper and lower extremity. Goal is to maintain blood pressure less than 185/105 for at least 24 hours. Continue with high-dose statin. Patient was already on Plavix. Will benefit from Aggrenox. But patient is allergic to aspirin that will be an issue. Please note the above document was generated using voice recognition software. It may contain grammatical, syntax or spelling errors.Any formal questions or concerns about the content, text or information contained within the body of this dictation should be directly addressed to the provider for clarification. History of Present Illness Attending Physician: Argelia Mckeon MD History of Present Illness 80 yo M PMHx CAD s/p CABG, CKD III with baseline creatinine 1.2, DM2 on oral therapy, HLD, HTN presented to ED the ER with complaints of "word salad" and right-sided visual deficit. Last known time well was 9:30 AM. No complaints of headache or dizziness, shortness of breath, chest pain, abdominal pain, nausea or vomiting, fever or chills, recent sick contacts. No prior history of CVA. Extensive smoking history with total 30 pack years. In ED telemetry stroke consult was performed and decision was made to give TPA. Imaging CT head and CTA head and neck did not show findings of acute CVA or intracranial hemorrhage. Patient was transferred to ICU for close hemodynamic monitoring postTPA. On my interview patient reports that his speech and his visual changes are both "back to normal". Describes that it is difficult to articulate his visual changes, as his vision was not completely gone this morning, however it "felt off". On my interview patient is alert and oriented, continues to deny chest pain, shortness of breath, abdominal pain, nausea, vomiting, fevers, dizziness, or headaches. Allergies Allergy/AdvReac Type Severity Reaction Status Date / Time aspirin Allergy Severe ANAPHYLAXIS Verified 03/20/20 13:44 Fish Containing Products Allergy Severe HIVES, Unverified 03/20/20 13:44 ANAPHYLAXIS naproxen Allergy Anaphylaxis Verified 03/20/20 13:44 Home Medications Medication Instructions Recorded Confirmed Type nitroglycerin 0.4 mg sublingual 0.4 mg SL Q5M PRN #30 tab 12/02/18 03/20/20 Rx tablet cholecalciferol (vitamin D3) 25 1,000 units PO DAILY 03/08/19 03/20/20 History mcg (1,000 unit) capsule atorvastatin 20 mg tablet 20 mg PO DAILY #90 tab 05/05/19 03/20/20 Rx clopidogrel 75 mg tablet 75 mg PO DAILY #90 tab 05/05/19 03/20/20 Rx lisinopril 20 mg tablet 20 mg PO BID #180 tab 10/11/19 03/20/20 Rx Patient History Medical History Actinic keratosis Arteriosclerotic coronary artery disease CAD (coronary artery disease) Carotid bruit Chronic kidney disease Claudication, intermittent Diabetic retinopathy, nonproliferative Dyslipidemia Hearing loss Hypertension Idiopathic polyneuropathy Osteoarthritis Past myocardial infarction Peripheral vascular disease Proteinuria Rhinitis Type 2 diabetes mellitus Vitamin D deficiency Surgical History Hx of CABG S/P CABG x 4 Family History Other No significant family history Denies family history of Ovarian cancer Prostate cancer Myocardial infarction Breast cancer Colorectal cancer Social History Smoking Status: Former smoker Tobacco Type: Cigarettes Second Hand Exposure: No; Hx Alcohol Use: Yes Alcohol type: beer Alcohol Intake Frequency: 4 or More x per/Week Hx Substance Use: No Preferred Language: British Communication Ability: Effective Visual Impairment: Limited Hearing Ability: Normal Ribbon Hand Required: No Beliefs That Will Affect Care: None marital status: Current Living Situation: Spouse current occupational status: retired How many Children do You have: 2 Other Information That Helps Us Care for You: No Feels Safe at Home: Yes Safety Concerns: Feels Safe At This Time Childhood Exposure to Second-Hand Smoke: Yes caffeine: Yes Dental Care, Regularly: Yes Physical Activity Frequency: 3-4 Times per Week Seatbelt Use: always Sunscreen Use: No Assistive Devices: Glasses Review of Systems Review of Systems: All systems reviewed & are unremarkable except as noted in HPI & below Constitutional: no fever, no chills and no malaise Respiratory: no cough and no dyspnea Cardiovascular: no chest pain, no palpitations and no edema Gastrointestinal: no abdominal pain, no constipation and no diarrhea/loose stools Physical Exam Physical Exam: General: Patient is well developed, well-nourished in no acute distress. HEENT: Atraumatic, normocephalic. Pulm: Lungs clear to auscultation bilaterally. Cardiac: Regular rate and rhythm, no murmurs. Abdominal: Soft, nontender, nondistended, normal bowel sounds. Psych: Alert and oriented x3, normal speech, euthymic affect. CRANIAL NERVE TESTING: II: Pupils equal and reactive to light and accommodation. Normal visual acuity bilaterally. III, IV, : EOM intact, no gaze preference or deviation, no nystagmus. V: Normal sensation in V1, V2, and V3 segments bilaterally. VII: No asymmetry, no nasolabial fold flattening. VIII: Normal hearing grossly. IX, X: Normal palatal elevation, no uvular deviation. XI: 5/5 head turn and 5/5 shoulder shrug bilaterally. XII: Midline tongue protrusion, able to move in all directions. MOTOR: Bilateral UE and LE 5/5 strength. SENSORY: Normal to touch in UE and LE without deficit or asymmetry. No side neglect. COORDINATION: No tremor. Results & Data Results & Data ([facility]) Vital Signs (Past 12 Hours) Vital Signs Temp Pulse Pulse Resp BP BP Pulse Ox 03/20/20 16:12 72 20 168/98 H 98 03/20/20 15:42 69 20 187/116 H 98 03/20/20 15:12 71 20 168/86 H 99 03/20/20 14:59 36.8 C 60 14 161/69 H 99 03/20/20 14:44 36.9 C 68 16 158/72 H 99 03/20/20 14:29 36.8 C 58 L 19 161/66 H 100 03/20/20 14:14 36.5 C 75 17 127/83 98 03/20/20 13:59 36.9 C 80 18 152/57 H 100 03/20/20 13:44 36.8 C 66 15 153/67 H 100 03/20/20 13:29 36.9 C 61 17 149/58 H 100 03/20/20 13:14 36.8 C 66 18 157/52 H 98 03/20/20 13:00 58 L 20 152/90 H 97 03/20/20 12:45 63 15 158/71 H 98 03/20/20 12:40 98 03/20/20 12:35 78 21 139/93 98 03/20/20 12:13 36.8 C 63 18 173/118 H 94 Resident Activity Tracking Resident Involvement: Resident Care Provided Care Provided: Adult Hospital Medicine (1) CVA (cerebral vascular accident) CVA mechanism: unspecified Qualified Code(s): I63.9 - Cerebral infarction, unspecified
[2020-03-20] MEDS ORDERED: hydrALAZINE HCL 20 MG/ML VIAL IV PRN (17:17)
[2020-03-20] MEDS: lisinopril 20 MG TAB PO SCH (20:54)
[2020-03-21 05:47] LABS: Phosphorus 3.7 mg/dl (2.5-4.9)
[2020-03-21 05:58] LABS: Estimated Average Glucose 146 mg/dl; Hemoglobin A1C 6.7 % (4.5-5.6)
--- NOTE | 2020-03-21 08:23 | Billing Data ---
Date of Service March 20, 2020 Coding Level of Care Code 01937 Initial Inpt Care Lvl 3
[2020-03-21] MEDS: lisinopril 20 MG TAB PO SCH (08:24)
--- NOTE | 2020-03-21 08:34 | Critical Care Progress Note ---
Date of Service March 21, 2020 Assessment & Plan (1) CVA (cerebral vascular accident): Reason Critically Ill: 80 yo M PMHx CAD s/p CABG, CKD III with baseline creatinine 1.2, DM2 on oral therapy, HLD, HTN presented with acute word salad and right visual field loss to ER, admitted to ICU for monitoring post-TPA. Neuro - CVA: - This AM at 930 with acute onset confusion - CT Head did not show any acute findings of bleed or stroke. - CTA Head/Neck showed mild-moderate stenosis at the origin of the right vertebral artery, <50% luminal narrowing at the origin of bilateral internal carotid arteries, moderate stenosis at the origin of the right external carotid artery, and high grade stenosis at the origin of the left external carotid artery. No acute findings of CVA or intracranial hemorrhage. - Telestroke consult with Dr. Davison from [facility]; decision made to proceed with TPA. - s/p TPA at 1PM on 03/20. - MRI while motion degraded did not have any evidence of acute or subacute infarct. - Echo results pending. - CT Head at 1PM today for 24 hour post-TPA scan. - Hgb A1c, lipid panel pending. - Admitted to ICU for close hemodynamic monitoring and frequent neuro checks. - Neurology consulted and appreciate recommendations. - Goal BP <185/105 post-TPA. - Continue home Lisinopril 20 mg p.o. twice daily for BP control. Hydralazine 10mg IV q6h prn BP >180/105. - Have escalated statin to atorvastatin 80mg daily. - Patient unable to take aspirin or Aggrenox due to past history of anaphylaxis with aspirin. Defer consideration for desensitization to Neurology. Cardiac CAD: - History of with CABG x4 in 2004; on atorvastatin, Plavix, Lisinopril at home. - Continue above. - EKG without acute changes, still with anterior lead T wave inversion just somewhat more pronounced on todays EKG. No complaints of chest pain or angina equivalents. - Mildly elevated troponin to 0.203, no baseline from previous visits to compare. - Echo ordered, pending. - Repeat troponin ordered, pending. - Hold beta patricia given HR in 50-60s. HTN: - Home lisinopril 20 mg p.o. twice daily for BP control. - Hydralazine 10mg IV q6h prn BP >180/105. HLD: - History of, on atorvastatin 20mg daily. - Lipid panel in AM. - Start atorvastatin 80mg daily. Respiratory - No acute respiratory concerns, no history of lung disease. - CXR shows emphysematous changes with no acute cardiopulmonary abnormalities. - Patient has a significant smoking history, 60 years of smoking 1/2 pack per day. GI - Swallow evaluation bedside performed. - Heart Healthy diet. RENAL/LYTES - CKD: - Baseline creatinine 1.1-1.2 with estimated GFR 51-61 mL/min. - On admission with creatinine 1.15. - Repeat BMP, Mg, Phos pending. - - No present concerns. - Judd for now for strict Is/Os. ENDO - - No history of thyroid disease, TSH 03/01 was 1.58. DM2: - History of, not on oral medications. - Hgb A1c pending. - ICU hyperglycemia protocol. HEME Anemia: - On admission with Hgb 12.3, baseline ~14. - MCV normal. - Monitor with CBC, especially in the setting of receiving TPA. ID - No present infectious concerns. - COVID 19 negative. - Monitor fever curve. INTEGUMENTARY - No integumentary concerns. LINES/IV ACCESS - PIVs intact. DVT PROPHYLAXIS - SCDs, holding medical ppx post-TPA. CODE STATUS - Full code. Thank you for allowing us to be part of this patient's care. Patient will be stable for downgrade to medical floor pending CT Head at 1PM. Please refer to Dr. Rodriguez's documentation for any further recommendations. (2) Anemia: (3) Elevated troponin: (4) Vision loss: (5) CAD (coronary artery disease): (6) Chronic kidney disease: (7) Type 2 diabetes mellitus: (8) Hypertension: (9) Dyslipidemia: Admission and Anticipated Discharge Date Admission Date: March 20, 2020 Supervising Physician Co-Signing Physician Notes Dr. Saldana was the resident-physician during care of patient. I separately evaluated patient for meyers portions of the history and the exam. I was present during the critical portion of medical decision making, and I discussed the case with the resident. I generally agree with the findings and plan except for any additions/exceptions noted. Patient seen and examined at bedside. No acute distress. No adverse events overnight. Patient is doing clinically well. No focal deficits. Answering all questions appropriately. Asking to go home. Tolerating diet. 5 out of 5 strength bilateral upper and lower extremity. Continue with high-dose statin. Continue with Plavix. We will defer aspirin versus Aggrenox to neurology. Patient does have history of aspirin allergy which is anaphylaxis. Desensitization to aspirin could be thought of if clinically indicated by neurology. Patient is hemodynamically stable and will be downgraded to a medical floor once the repeat CAT scan is negative which will be 24 hours from the previous one. Please note the above document was generated using voice recognition software. It may contain grammatical, syntax or spelling errors.Any formal questions or concerns about the content, text or information contained within the body of this dictation should be directly addressed to the provider for clarification. Subjective Patient without acute events overnight. Feels well and without complaints this AM. Denies chest pain, shortness of breath, nausea or vomiting, abdominal pain, fever, dizziness, or headaches. No numbness of face/limbs, no visual deficits. Review of Systems Review of Systems: All systems reviewed & are unremarkable except as noted in HPI & below Constitutional: no fever, no chills and no malaise Respiratory: no cough and no dyspnea Cardiovascular: no chest pain, no palpitations and no edema Gastrointestinal: no abdominal pain, no constipation and no diarrhea/loose stools Physical Exam Physical Exam: General: Patient is well developed, well-nourished in no acute distress. HEENT: Atraumatic, normocephalic. Pulm: Lungs clear to auscultation bilaterally. Cardiac: Regular rate and rhythm, no murmurs. Abdominal: Soft, nontender, nondistended, normal bowel sounds. Psych: Alert and oriented x3, normal speech, euthymic affect. CRANIAL NERVE TESTING: II: Pupils equal and reactive to light and accommodation. Normal visual acuity bilaterally. III, IV, : EOM intact, no gaze preference or deviation, no nystagmus. V: Normal sensation in V1, V2, and V3 segments bilaterally. VII: No asymmetry, no nasolabial fold flattening. VIII: Normal hearing grossly. IX, X: Normal palatal elevation, no uvular deviation. XI: 5/5 head turn and 5/5 shoulder shrug bilaterally. XII: Midline tongue protrusion, able to move in all directions. MOTOR: Bilateral UE and LE 5/5 strength. SENSORY: Normal to touch in UE and LE without deficit or asymmetry. No side neglect. COORDINATION: No tremor. Results & Data Results & Data ([facility]) Vital Signs (Past 12 Hours) Vital Signs Temp Pulse Pulse Resp BP BP Pulse Ox 03/21/20 07:12 36.6 C 89 16 130/66 95 03/21/20 06:12 36.8 C 55 L 16 139/61 94 03/21/20 06:00 57 L 9 L 97 03/21/20 05:12 36.9 C 56 L 18 175/62 H 95 03/21/20 05:00 63 15 96 03/21/20 04:45 56 L 12 175/62 H 94 03/21/20 04:15 53 L 15 166/81 H 97 03/21/20 04:12 36.9 C 56 L 20 166/81 H 96 03/21/20 04:00 60 18 90 03/21/20 03:44 59 L 15 157/57 H 93 03/21/20 03:14 56 L 16 145/53 H 94 03/21/20 03:12 36.8 C 54 L 16 145/53 H 93 03/21/20 03:00 57 L 16 93 03/21/20 02:45 63 16 140/62 94 03/21/20 02:19 69 15 169/66 H 96 03/21/20 02:12 36.6 C 65 16 169/66 H 96 03/21/20 02:00 60 16 96 03/21/20 01:44 56 L 8 L 118/66 96 03/21/20 01:14 56 L 16 143/54 H 95 03/21/20 01:12 36.9 C 55 L 16 143/54 H 96 03/21/20 01:00 62 18 95 03/21/20 00:44 56 L 16 133/55 L 96 03/21/20 00:14 59 L 16 129/63 92 03/21/20 00:12 36.6 C 55 L 16 129/63 94 03/21/20 00:00 56 L 18 95 03/20/20 23:44 57 L 15 142/59 H 94 03/20/20 23:15 61 14 156/56 H 95 03/20/20 23:12 36.9 C 60 16 156/56 H 94 03/20/20 23:00 59 L 16 95 03/20/20 22:44 58 L 15 122/52 L 96 03/20/20 22:14 60 16 135/57 L 92 03/20/20 22:12 36.8 C 58 L 18 135/57 L 93 03/20/20 22:00 76 15 95 03/20/20 21:14 63 14 128/115 H 95 03/20/20 21:12 36.9 C 64 18 128/55 L 95 03/20/20 21:00 71 17 93 03/20/20 20:44 56 L 20 120/55 L 92 03/20/20 20:42 36.9 C 60 17 120/55 L 96 Resident Activity Tracking Resident Involvement: Resident Care Provided Care Provided: Adult Hospital Medicine (1) Anemia Anemia type: unspecified type Qualified Code(s): D64.9 - Anemia, unspecified (2) CVA (cerebral vascular accident) CVA mechanism: unspecified Qualified Code(s): I63.9 - Cerebral infarction, unspecified
[2020-03-21] MEDS ORDERED: ATORVASTATIN 40 MG TAB PO SCH ×2 (09:00)
[2020-03-21] MEDS ORDERED: CHOLECALCIFEROL 1,000 UNITS 25 MCG TAB PO SCH (09:00)
--- NOTE | 2020-03-21 12:27 | Billing Data ---
Date of Service March 21, 2020 Coding Level of Care Code 65835 Subseq Hosp Care Lvl 3
--- NOTE | 2020-03-21 13:07 | Neurology Consultation ---
Date of Consultation March 21, 2020 Assessment & Plan (1) Hyponatremia: (2) Stroke-like symptoms: He was afebrile, BP 173/118, heart rate 63, respiratory rateEarodilon Cheng is an 80 yo man w/ PMH of HTN, HLD, CAD s/p CABG, CKD, DM c/b retinopathy and neuropathy, PVD, vitamin D deficiency and prior tobacco abuse who p/t [facility] with acute onset of right visual field loss, confusion and aphasia. 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, mild stenosis in the origin of the right vertebral artery, otherwise no other LVO, high-grade stenosis or aneurysm noted - MRI brain: shows no acute or chronic infarct, mild generalized atrophy with ex vacuo dilation, mild SVID and no microhemorrhages noted on GRE sequence - TTE: EF 65-70%, mild LVH, mild MR, no PFO - Telemetry: NSR - A1c: 6.7 - FLP: 43 - Troponin, TSH: elevated troponin (0.203), TSH WNL Stroke Management: - Acute treatment: tPA - Continuous cardiac monitoring, 30 day event monitor as outpatient if telemetry here unrevealing - Vitals, Neurochecks, NIHSS per unit routine - BP parameters: SBP CAP 180, restart home anti-hypertensives for CAP, IV Labetalol/Hydralazine PRN - Consult speech, PT, OT for supportive management - Will university counselor concerning stroke education, smoking cessation, healthy diet, physical activity, weight loss - Follow up with PCP for assistance with outpatient goals (BP <135/85, LDL <70, A1c <7) - Follow up in neurology clinic in 6-8 weeks (with SAUL Carlson to get in this time frame) Secondary Stroke Prevention: - Antiplatelet: plavix 75mg daily - Anticoagulation: Not indicated at this time - Statin: continue home Atorvastatin 20mg daily HTN: - BP parameters, as above - Restart home medications with goal of lowering BP to normotension over next 3- 4 days FEN/GI: - Diet: Beside dysphagia to clear patient for Cardiac HH diet and PO meds given absence of bulbar signs or symptoms - Monitor lytes and replete PRN Glucose Control: - Sliding scale insulin and accuchecks per primary team to avoid hyperglycemia Thank you for this interesting consult. Plan of care was discussed with primary team. Please call with any questions. He is stable for discharge from a neurological standpoint. (3) Vision loss: History of Present Illness Attending Physician: Aniceto Calvert History of Present Illness He was afebrile, BP 173/118, heart rate 63, respiratory rateEarodilon Cheng is an 80 yo man w/ PMH of HTN, HLD, CAD s/p CABG, CKD, DM c/b retinopathy and neuropathy, PVD, vitamin D deficiency and prior tobacco abuse who p/t [facility] with acute onset of right visual field loss, confusion and aphasia. 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 Symptoms initially improved with PO glucose ( noted low glucose levels) but recurred ~ 9:30am prompting presentation to the ED. In the ED, afebrile, BP 173/118, heart rate 63, respiratory rate 18, satting 94% on room air. Labs notable for WBC 8.43, hemoglobin 12.3 with MCV 91.3, platelets 229, sodium low at 132, potassium 4.3, creatinine 1.15, glucose 137, INR 1.0, LFTs within normal, troponin mildly elevated 0.203, Covid negative. Imaging independently reviewed. CT head showed no hemorrhage or hypodensity. 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 MRI brain shows no acute or chronic infarct, mild generalized atrophy with ex vacuo dilation, mild SVID and no microhemorrhages noted on GRE sequence. Repeat CTH shows no hemorrhagic conversion. On examination, he reports that his symptoms started yesterday morning and dissipated after imaging yesterday. He has not had recurrence of symptoms since then. Endorses taking plavix at home with no missed doses recently. Denies any recent illness or infection. Stroke Workflow: Where patient arrived from: home CT ASPECT: 10 Time IV tpa is given: 1312 on 03/20/20 tPA bolus: 6mg tPA dose: 53 mg If tpa not given, why not: n/a If delay >60min after hospital arrival, why: n.a If no IA therapy, why not: No LVO on CTA Patient Features: Admission NIHSS: 2 Admission Modified [place] Scale: 0-1 Time patient last seen well: 9:30am Wake up stroke: No Intubation status: Not intubated Stroke Risk Factors: Hypertension: Y Hyperlipidemia: Y Atrial Fib: N Tobacco: Y Diabetes: Y Taking NOAC or warfarin: N Allergies Allergy/AdvReac Type Severity Reaction Status Date / Time aspirin Allergy Severe ANAPHYLAXIS Verified 03/20/20 13:44 Fish Containing Products Allergy Severe HIVES, Unverified 03/20/20 13:44 ANAPHYLAXIS naproxen Allergy Anaphylaxis Verified 03/20/20 13:44 Home Medications Medication Instructions Recorded Confirmed Type nitroglycerin 0.4 mg sublingual 0.4 mg SL Q5M PRN #30 tab 12/02/18 03/20/20 Rx tablet cholecalciferol (vitamin D3) 25 1,000 units PO DAILY 03/08/19 03/20/20 History mcg (1,000 unit) capsule atorvastatin 20 mg tablet 20 mg PO DAILY #90 tab 05/05/19 03/20/20 Rx clopidogrel 75 mg tablet 75 mg PO DAILY #90 tab 05/05/19 03/20/20 Rx lisinopril 20 mg tablet 20 mg PO BID #180 tab 10/11/19 03/20/20 Rx atorvastatin 80 mg PO DAILY #60 tab 03/21/20 Rx Patient History Medical History Actinic keratosis Arteriosclerotic coronary artery disease CAD (coronary artery disease) Carotid bruit Chronic kidney disease Claudication, intermittent Diabetic retinopathy, nonproliferative Dyslipidemia Hearing loss Hypertension Idiopathic polyneuropathy Osteoarthritis Past myocardial infarction Peripheral vascular disease Proteinuria Rhinitis Type 2 diabetes mellitus Vitamin D deficiency Surgical History Hx of CABG S/P CABG x 4 Family History Other No significant family history Denies family history of Ovarian cancer Prostate cancer Myocardial infarction Breast cancer Colorectal cancer Social History Smoking Status: Former smoker Tobacco Type: Cigarettes Second Hand Exposure: No; Hx Alcohol Use: Yes Alcohol type: beer Alcohol Intake Frequency: 4 or More x per/Week Hx Substance Use: No Preferred Language: Fijian Communication Ability: Effective Visual Impairment: Limited Hearing Ability: Normal Gallery Or Museum Guide Required: No Beliefs That Will Affect Care: None marital status: Current Living Situation: Spouse current occupational status: retired How many Children do You have: 2 Other Information That Helps Us Care for You: No Feels Safe at Home: Yes Safety Concerns: Feels Safe At This Time Childhood Exposure to Second-Hand Smoke: Yes caffeine: Yes Dental Care, Regularly: Yes Physical Activity Frequency: 3-4 Times per Week Seatbelt Use: always Sunscreen Use: No Assistive Devices: Glasses Review of Systems Review of Systems: 14 point review of systems completed and negative except as in HPI. Exam (Neuro) Physical Exam: General Exam: GEN: NAD, sitting/lying down in examination bed. HEENT: No conjunctival injection, no rhinorrhea. CV: RRR on monitor, no significant edema. PULM: Nonlabored respirations on room air. Neuro Exam: MS: Awake and Alert. Oriented to person, place, and date. Speech fluent and appropriate without dysarthria or paraphasic errors. Language intact including naming, comprehension, repetition. Cognition and memory grossly intact. Attention intact. No neglect. CN: Visual valenzuela full, + blink to threat bilaterally. No extinction to double simultaneous stimuli. Normal fundoscopic exam. PERRLA OU. EOMI without nystagmus. Facial sensation intact to LT. Facial muscles full and symmetric. Hearing intact to finger rub bilaterally. Uvula midline with symmetric palatal elevation. Shoulder shrug normal. Tongue midline. MOTOR: Normal bulk and tone. No pronator drift. BUE strength 5/5 at deltoids, biceps, triceps, wrist flexors and extensors, and finger flexors bilaterally. BLE strength 5/5 at iliopsoas, hamstrings, quadriceps, tibialis anterior, and gastrocnemius bilaterally. REFLEXES: 1+ at biceps, triceps, brachioradialis, 1+ patella, and absentAchilles bilaterally. Flexor plantar responses bilaterally. SENSORY: Intact to LT/vibration/temperature throughout, no extinction to double simultaneous stimuli. COORDINATION: No dysmetria or ataxia on [id number] bilaterally. Normal [place] bilaterally. GAIT: Deferred due to physical status. NIH STROKE SCALE 1A. Level of Consciousness (0-3) = 0 1B. LOC Questions (0-2) = 0 1C. LOC Commands (0-2) = 0 2. Best Horizontal Gaze (0-2) = 0 3. Visual Valenzuela (0-3) = 0 4. Facial Palsy (0-3) = 0 5. Motor Arm Right (0-4) = 0 Left (0-4) = 0 6. Motor Leg Right (0-4) = 0 Left (0-4) = 0 7. Limb Ataxia (0-2) = 0 8. Sensory (0-2) = 0 9. Best Language (0-3) = 0 10. Dysarthria (0-2) = 0 11. Extinction and Inattention (0-2) = 0 NIHSS TOTAL = 0 Results & Data ([facility]) Vital Signs (Past 12 Hours) Vital Signs Temp Pulse Pulse Resp BP BP Pulse Ox 03/21/20 12:12 78 20 140/89 96 03/21/20 11:12 72 16 136/60 96 03/21/20 10:12 54 L 16 130/59 L 95 03/21/20 09:12 62 18 129/54 L 96 03/21/20 08:12 73 16 148/77 H 96 03/21/20 07:12 36.6 C 89 16 130/66 95 03/21/20 06:12 36.8 C 55 L 16 139/61 94 03/21/20 06:00 57 L 9 L 97 03/21/20 05:12 36.9 C 56 L 18 175/62 H 95 03/21/20 05:00 63 15 96 03/21/20 04:45 56 L 12 175/62 H 94 03/21/20 04:15 53 L 15 166/81 H 97 03/21/20 04:12 36.9 C 56 L 20 166/81 H 96 03/21/20 04:00 60 18 90 03/21/20 03:44 59 L 15 157/57 H 93 03/21/20 03:14 56 L 16 145/53 H 94 03/21/20 03:12 36.8 C 54 L 16 145/53 H 93 03/21/20 03:00 57 L 16 93 03/21/20 02:45 63 16 140/62 94 03/21/20 02:19 69 15 169/66 H 96 03/21/20 02:12 36.6 C 65 16 169/66 H 96 03/21/20 02:00 60 16 96 03/21/20 01:44 56 L 8 L 118/66 96 03/21/20 01:14 56 L 16 143/54 H 95 03/21/20 01:12 36.9 C 55 L 16 143/54 H 96 03/21/20 01:00 62 18 95 PG Care Time/CCT Total # of Minutes Spent Total Time Spent with Patient: Total time spent is greater than 50% in coordination of care (as documented) at patient's floor/unit and/or counseling patient: Coding Level of Care Code 80290 Initial Inpt Care Lvl 3 Diagnoses Hyponatremia E87.1 Stroke-like symptoms R29.90 Vision loss H54.7
--- NOTE | 2020-03-21 13:34 | CT Scan Report ---
CT OF THE HEAD WITHOUT CONTRAST CLINICAL HISTORY: post-TPA COMPARISON STUDY: Head CT, CTA of the head and MRI the brain March 20, 2020. CT DOSE: 2118.09 mGycm TECHNIQUE: Helical axial images of the head were obtained without IV contrast. Automated exposure con trol was utilized for the study. A dose lowering technique was utilized adhering to the principles o f ALARA. FINDINGS: No acute intracranial hemorrhage, midline shift or mass effect is present. White matter hyp odensity suggests small vessel disease. The ventricular system is unremarkable. The basal cisterns ar e patent. No extra-axial collections are present. There are no findings to suggest acute dural sinus thrombosis or acute territorial infarct. No significant calvarial abnormalities are present. Visualiz ed portions of the sinuses and mastoid air cells are clear. IMPRESSION: No acute intracranial findings. Exam mildly compromised by motion artifact. ACT 112: Negative or not required by law. Electronically signed by: Lucas Vu M.D. 03/21/2020 1:32 PM
--- NOTE | 2020-03-21 14:00 | XCELERA ---
[id number]
[2020-03-21 14:23] LABS: Basophils # (auto) 0.01 K/uL (0-0.2); Basophils % (auto) 0.1 %; Eosinophils # (auto) 0.05 K/uL (0-0.5); Eosinophils % (auto) 0.5 %; Hematocrit (blood only) 40.1 % (42-52); Hemoglobin 13.9 g/dL (14.0-18.0); Immature Granulocytes # (auto) 0.02 K/uL (0.00-0.02); Immature Granulocytes % (auto) 0.2 %; Lymphocytes # (auto) 0.83 K/uL (1.2-3.4); Lymphocytes % (auto) 7.9 %; Mean Corpuscular Hemoglobin 31.7 pg (25-34); Mean Corpuscular Hgb Conc 34.7 g/dL (32-36); Mean Corpuscular Volume 91.3 fL (80-100); Mean Platelet Volume 10.9 fL (7.4-10.4); Monocytes % (auto) 6.7 %; Neutrophils # (auto) 8.89 K/uL (1.4-6.5); Neutrophils % (auto) 84.6 %; Platelet Count 216 K/uL (130-400); RDW Coefficient of Variation 12.8 % (11.5-14.5); RDW Standard Deviation 42.8 fL (36.4-46.3); Red Blood Count 4.39 M/uL (4.7-6.1)
[2020-03-21 14:41] LABS: BUN Creatinine Ratio 10.3 (10-20); Calcium 8.7 mg/dl (8.5-10.1); Creatinine Clr Calc Pharmacy 42.6 ml/min; Est GFR (African American) 70.5; Est GFR (Non-African American) 60.8; Magnesium 2.2 mg/dl (1.8-2.4); Potassium 4.4 mmol/L (3.5-5.1)
[2020-03-21 14:47] LABS: Troponin I 0.332 ng/ml (0-0.045)
[2020-03-21] MEDS ORDERED: STROKE PATIENT DISCHARGE STA (15:12)
--- NOTE | 2020-03-21 15:28 | Pharmacy Report ---
Pharmacist Stroke Counseling - Date of Service March 21, 2020 - Scope: Pharmacy has been consulted to provide medication discharge counseling for this patient admitted with ischemic stroke as per the Pharmacist Discharge Counseling for Stroke Patients Protocol. - Medications on Discharge: Home Medications Medication Instructions Recorded Confirmed cholecalciferol (vitamin D3) 25 1,000 units PO DAILY 03/08/19 03/20/20 mcg (1,000 unit) capsule New Rx's Medication Instructions Recorded nitroglycerin 0.4 mg sublingual 0.4 mg SL Q5M PRN #30 tab 12/02/18 tablet clopidogrel 75 mg tablet 75 mg PO DAILY #90 tab 05/05/19 lisinopril 20 mg tablet 20 mg PO BID #180 tab 10/11/19 atorvastatin 80 mg PO DAILY #60 tab 03/21/20 - Action: The above medications, specifically ones for stroke treatment/prophylaxis, have been reviewed in detail with the patient and/or patient pharmaceutical service representative(s) prior to discharge. This includes indication, common adverse reactions, drug inte ractions, and medication administration. Medication counseling has been employed using the teach-back method to ensure understanding. - Outcome: The patient and/or patient pharmaceutical service representative(s) have demonstrated understanding of the medications. Additional comments: [] Thank you for allowing pharmacy to be involved in the care of this patient. Please call [phone] with any additional questions
== END 2020-03-21 15:53 | disposition home or self-care (01) | DRG 62 ==
LOC: ED 12:03 → 1E 15:22 → SUATTDRO 15:22 → 1E 16:23